=== PATIENT | female | born 1940 | race Caucasian/White ===

== ENCOUNTER → 2016-12-17 | Outpatient (CLI) | payer MEDICARE ==
--- NOTE | 2016-12-17 16:54 | PN ---
DATE OF SERVICE: 12/17/2016 A 76-year-old lady who has been followed in the sleep center for treatment of severe obstructive sleep apnea/hypopnea. Recently patient had a diagnostic sleep study and CPAP and then BiPAP titration. I discussed results of sleep studies with patient in detail because she has extremely severe sleep apnea with severe oxygen desaturation. Presently she is on treatment with BiPAP. I checked her BiPAP unit. Usage is every night with 28 out of 30 nights for more than 4 hours. Ramp is 20 minutes. While we checked her CPAP unit it came up that the patient did not connect tube correctly to CPAP unit. It was vice versa. A leak from the mask is in high range at 47 L/min, but again it could be related to connection to the tube. Apnea-hypopnea index reading from the machine is 7.7 for the last 30 days, which is not bad at all comparing with extremely severe sleep apnea. Apnea-hypopnea index 88.5. Patient feels that she sleeps better. [place] Sleepiness Scale is 10. Before treatment [place] Sleepiness Scale was 13. MEDICATIONS: Bumetanide, Atenolol, omeprazole, losartan, hydrochlorothiazide, levothyroxine, iron supplement, folic acid, multivitamins. PHYSICAL EXAMINATION: GENERAL: During physical exam, the patient in no distress. VITAL SIGNS: BP 160/83, HR 65, RR 16. Oxygen saturation at room air 92%, height 64.5, weight 244.8. BMI 41.2. Temperature 97.1. Oropharynx extremely low position of soft palate. HEENT: PERRLA, EOMI, Evaluation of the oropharynx showed tongue protrudes midline. NECK: Supple. No JVD, Thyroid is not palpable. LUNGS: Clear to percussion and to auscultation. Good air exchange. No wheezing or rhonchi. HEART: S1, S2 regular. No murmurs, gallops, or rubs. ABDOMEN: Obese. Soft and nontender. Bowel sounds are present. No organomegaly appreciated. CORRECTIONS OFFICER: Awake, alert, and oriented x3. Cranial nerves 2 to 7 intact. There is no fasciculation or atrophy noted. No focal deficits observed. IMPRESSION: 1. Extremely severe obstructive sleep apnea-hypopnea syndrome. Apnea-hypopnea index 88.5 with oxygen desaturation to 59.9%. Patient demonstrated close to 100% compliance with treatment benefiting from treatment. 2. Obesity. 3. Hypertension. 4. History of cardiac arrhythmia. 5. Iron deficiency anemia. 6. Acid reflux. 7. Hyperlipidemia. PLAN: 1. Patient will continue to use BiPAP equipment every night for the whole night. 2. Losing weight. 3. Sleep hygiene with regular time in bed for at least 8 hours. 4. No driving if feeling any sleepiness. 5. Follow-up visit in 6 months. Thank you very much for allowing me to participate in the management of your patient. Sincerely, Sharif Helton MD, PhD, FAASM Diplomat of [employer] Board of Sleep Medicine, Sleep Medicine Board by [employer] Board of Medical Specialities [employer] Board of Internal Medicine Vice President Education of [facility] [place]
== END | disposition home or self-care (01) ==
LOC: SLEEP 14:13
PROVIDERS: ATTEND Internal Medicine
DX: G47.33 Obstructive sleep apnea (adult) (pediatric) (principal); E66.9 Obesity, unspecified; Z68.41 Body mass index [BMI] 40.0-44.9, adult; I10 Essential (primary) hypertension; I49.9 Cardiac arrhythmia, unspecified; D50.9 Iron deficiency anemia, unspecified; K21.9 Gastro-esophageal reflux disease without esophagitis; E78.5 Hyperlipidemia, unspecified; Z79.899 Other long term (current) drug therapy

== ENCOUNTER 2017-12-28 09:39 | Day surgery (SDC) | payer MEDICARE ==
[2017-12-24 08:38] VITALS: BMI 42.2
[~2017-12-28 09:39] MED LIST: LIDOCAINE 1% 20 ML VIAL (10MG/ML) FOR IV START INTRADERMA PRN; MIDAZOLAM 2 MG/2 ML VIAL IV PRN
[2017-12-28 11:07] VITALS: RESP 16; TEMP 98
[2017-12-28] MEDS: LACTATED RINGERS 1,000 ML IV SCH ×2 (11:15→11:23)
[2017-12-28] MEDS ORDERED: PROPOFOL 10 MG/ML 20 ML VIAL IV ONE (11:24)
--- NOTE | 2017-12-28 12:30 | P.PCN ---
Date of Procedure: 12/28/17 Procedure(s) Performed: Procedure: 1. Esophagogastroduodenoscopy and biopsy. 2. Total colonoscopy. Preoperative diagnosis: Anemia and melena. Postoperative diagnosis: 1. Moderately sized hiatal hernia but no obvious esophagitis or complicated reflux disease. 2. Mild antral gastritis. 3. Colonoscopy revealed diverticulosis with no evidence of acute diverticulitis, strictures, polyps or cancer. Preparation: HalfLytely prep. Sedation: Was provided by anesthesia. Brief clinical history: The patient is a 77-year-old female who is scheduled for this evaluation for the above reasons. No hematochezia or hematemesis. No dysphagia, odynophagia or significant abdominal pains or change in bowel habits. She is taking iron and she thinks that made her stools darker. Procedure: With the patient on her left lateral decubitus position and after informed consent and adequate sedation, I passed the Olympus-GIF 160 video upper endoscope through the cricopharyngeus down the esophagus. GE junction was around 35 cm from the incisors and there was a small sliding hiatal hernia but no obvious esophagitis or complicated reflux disease. The endoscope was then passed into the stomach which was insufflated with air and inspected in detail including the retroflex view in the cardia. There was some mottling and erythema in the antrum but no ulcers or erosions. Pyloric channel, duodenal bulb, post bulbar area and descending duodenum appeared within normal limits. Because of her symptoms, I obtained biopsies from the duodenum, antrum and esophagus then the endoscope was withdrawn and I proceeded to do colonoscopy. Perianal area did not show any fissures or fistulas. There were no masses felt on digital rectal examination. The Olympus CFH 190 L video colonoscope was initially used and was inserted in the rectum in the usual fashion, however, I was not able to advance it safely in the sigmoid, so I exchanged it for the Olympus PCF Q180 videocolonoscope which was advanced without difficulty to the cecum. There were multiple diverticular orifices seen scattered in the sigmoid with occasional orifice around the hepatic flexure and on the right side with no evidence of acute diverticulitis or strictures. No polyps or tumors were seen. I retroflexed the endoscope in the rectum before the endoscope was withdrawn. The patient tolerated the procedure well. Plan: The patient was reassured. Will await pathology results. Consideration can be given for a small bowel study depending on her course and blood counts, especially, if she continues to manifest anemia and evidence of GI bleeding. She will follow-up with you as planned.
[2017-12-28 12:42] VITALS: BP 141/68; PULSE 53
== END 2017-12-28 13:06 | disposition home or self-care (01) ==
LOC: ORWHC2ENDO 09:39
DX: K44.9 Diaphragmatic hernia without obstruction or gangrene (principal); K57.90 Diverticulosis of intestine, part unspecified, without perforation or abscess without bleeding; D64.9 Anemia, unspecified; K29.50 Unspecified chronic gastritis without bleeding; I10 Essential (primary) hypertension; E78.5 Hyperlipidemia, unspecified; E07.9 Disorder of thyroid, unspecified; G47.33 Obstructive sleep apnea (adult) (pediatric); Z99.89 Dependence on other enabling machines and devices; Z79.890 Hormone replacement therapy; Z79.899 Other long term (current) drug therapy; Z88.1 Allergy status to other antibiotic agents
CPT/HCPCS: 88305; 45378; 43239; J2704

== ENCOUNTER → 2017-12-30 | Outpatient (CLI) | payer MEDICARE ==
--- NOTE | 2017-12-30 11:04 | SFUN ---
SLEEP CENTER FOLLOW UP NOTE DATE OF SERVICE: 12/30/2017. This 77-year-old lady has been followed in sleep center for treatment of severe obstructive sleep apnea-hypopnea syndrome. The patient continued to use her BiPAP equipment every night without significant problems, sleep well with the machine, no snoring. [place] Sleepiness Scale today is 6. I checked patient's BiPAP unit. Pressure is 19/15 cm of water. Usage is 100% of the time more than 4 hours. Average usage is 8.8 hours apnea-hypopnea index is only 2.3, which is perfect. Significant leak according to the machine 73 L/minute. When we checked the patient full-face mask, it is broken in small place which could be the reason for the leak. MEDICATIONS: Fluoxetine, fluticasone, iron supplement, Atenolol, losartan, hydrochlorothiazide, levothyroxine. PHYSICAL EXAM: During physical exam, patient in no distress. VITAL SIGNS: BP 139/75, HR 68, RR 16, height 5 feet 4 inches, weight 244, BMI 41.8, temp 97.2, oxygen saturation on room air 95%. Patient lost 7 pounds since previous visit. HEENT: PERRLA, EOMI. Oropharynx extremely low position of soft palate. NECK: Supple, no JVD. Thyroid is not palpable. LUNGS: Clear to percussion and to auscultation. Good air exchange. No wheezing or rhonchi. HEART: S1, S2 regular. No murmurs, gallops, or rubs. ABDOMEN: Obese. EXTREMITIES: No clubbing or cyanosis. C ARCHITECT: Awake, alert, and oriented X3. Cranial nerves 2 to 7 intact. There is no fasciculation or atrophy. noted. No focal deficits observed. IMPRESSION: 1. Severe obstructive sleep apnea-hypopnea syndrome, apnea-hypopnea index 88.5 with oxygen desaturation to 59.9, on full control with BiPAP. The patient demonstrated 100% compliance with treatment benefitting from treatment. 2. Mask is broken, significant leak from the mask. 3. Obesity. 4. Hypertension. 5. History of cardiac arrhythmia. 6. History of iron deficiency anemia. 7. Hyperlipidemia. 8. History of acid reflux. 9. Status post bilateral knee replacement. 10.Hypothyroidism. PLAN: 1. Prescription for all necessary BiPAP supplies including mask, tube, filters. 2. Continue to use BiPAP equipment every night for the whole night. 3. Continue losing weight. 4. Sleep hygiene with regular time in bed for at least 8 hours. 5. No driving if feeling any sleepiness. Thank you very much for allowing me to participate in management of your patient. Sincerely, Sharif Helton MD, PhD, FAASM Diplomat of [place] [employer] Medical Specialties [place] Board of Internal Medicine [facility] [place] MMODL / IJN: [id number] /
== END | disposition home or self-care (01) ==
LOC: SLEEP 10:00
PROVIDERS: ATTEND Internal Medicine
DX: G47.33 Obstructive sleep apnea (adult) (pediatric) (principal); E66.9 Obesity, unspecified; I10 Essential (primary) hypertension; E78.5 Hyperlipidemia, unspecified; E03.9 Hypothyroidism, unspecified; Z96.653 Presence of artificial knee joint, bilateral; Z87.19 Personal history of other diseases of the digestive system; Z86.79 Personal history of other diseases of the circulatory system; Z86.2 Personal history of diseases of the blood and blood-forming organs and certain disorders involving the immune mechanism; Z79.899 Other long term (current) drug therapy

== ENCOUNTER → 2018-06-21 | Outpatient (CLI) | payer MEDICARE ==
--- NOTE | 2018-06-21 08:27 | US ---
EXAMINATION TYPE: US duplex aorta DATE OF EXAM: 06/21/2018 COMPARISON: CT 2012 CLINICAL HISTORY: Z82.49 Family HX of ischemic heart disease. Father had AAA EXAM MEASUREMENTS: Abdominal Aorta: Proximal: 2.6 x 2.4 cm Mid: 2.0 x 1.8 cm Distal: 1.8 x 1.6 cm Bifurcation: 1.3 x 1.0 cm 1.3 x 0.9 cm No evidence of AAA Aorta is successfully visualized through the bifurcation without aneurysmal change. Incidental note i s made of heterogeneous hyperechoic liver likely reflecting diffuse fatty infiltration on images save d. IMPRESSION: No ultrasound evidence for AAA.
== END | disposition home or self-care (01) ==
LOC: RADUSWWP 07:26
PROVIDERS: ATTEND Family Medicine
DX: Z13.6 Encounter for screening for cardiovascular disorders (principal); Z82.49 Family history of ischemic heart disease and other diseases of the circulatory system
CPT/HCPCS: 93979

== ENCOUNTER → 2018-07-19 | Outpatient (CLI) | payer MEDICARE ==
--- NOTE | 2018-07-19 11:57 | MM ---
Reason for exam: screening (asymptomatic). Last mammogram was performed 1 year ago. History: Patient is postmenopausal. 2 excisional biopsies of the right breast, 1970. Took hormonal contraceptives for 3 years. Took estrogen for 15 years 6 months. Took progesterone for 5 years beginning at age 62. Physical Findings: A clinical breast exam by your physician is recommended on an annual basis and results should be correlated with mammographic findings. MG 3D Screening Mammo W/Cad Bilateral CC and MLO view(s) were taken. Prior study comparison: July 09, 2017, bilateral MG 3d screening mammo w/cad. January 21, 2016, bilateral MG 3d screening mammo w/cad. The breast tissue is heterogeneously dense. This may lower the sensitivity of mammography. Finding #1: There is stable architectural distortion in the anterior position of the right breast consistent with known excisional biopsy. Finding #2: There are typically benign dystrophic, round calcifications in both breasts. There is a chronic nodularity in the left breast. There is no discrete abnormality. ASSESSMENT: Benign, BI-RAD 2 RECOMMENDATION: Routine screening mammogram of both breasts in 1 year.
== END | disposition home or self-care (01) ==
LOC: RADMAMWWP 09:07
PROVIDERS: ATTEND Family Medicine
DX: Z12.31 Encounter for screening mammogram for malignant neoplasm of breast (principal)
CPT/HCPCS: 77063; 77067

== ENCOUNTER → 2018-09-27 | Outpatient (CLI) | payer MEDICARE ==
--- NOTE | 2018-09-27 23:06 | BD ---
EXAMINATION TYPE: Axial Bone Density DATE OF EXAM: 09/27/2018 Comparison: Prior DEXA bone scan January 21, 2016 CLINICAL HISTORY: Height: 246 Weight: 64 inches FRAX RISK QUESTIONS: Alcohol (3 or more units per day): no Family History (Parent hip fracture): no Glucocorticoids (More than 3mos): no (Ex: prednisone, prednisolone, methylprednisolone, dexamethasone, and hydrocortisone). History of Fracture in Adulthood: yes, foot Secondary Osteoporosis: 1. Type 1 Diabetes: no 2. Hyperthyroidism: no 3. Menopause before 45: yes 4. Malnutrition: no 5. Chronic liver disease: no Rheumatoid Arthritis: yes Current Tobacco Use: no RISK FACTORS HISTORY OF: Family History of Osteoporosis: yes Active: yes Diet low in dairy products/other sources of calcium: no Postmenopausal woman: yes Take estrogen and/or progesterone medications: topical for about one year How long: hormonal contraceptives about 3 years; estrogen about 15 years, progesterone about 5 years Lost more than 2 inches in height since high school: unsure, states may have been about 66 inches at one time Frequent falls: no Poor Health: no Hyperparathyroidism: no Adrenal Insufficiency: no MEDICATIONS: Prednisone or other steroids: no Thyroid Medications: yes Which medication: Levothyroxine How Long: over 10 years Osteoporosis Medications: no Additional Medications: for cholesterol, hypertension Additional History: bilateral knee replacements, multi-vitamin, heart arrythmia, iron supplement EXAM MEASUREMENTS: Bone mineral densitometry was performed using the [employer] System. Bone mineral density as measured about the Lumbar spine is: ----- L1-L4(G/cm2): 1.334 T Score Values are as follows: ----- L2: 1.4 ----- L3: 2.3 ----- L4: 0.4 ----- L1-L4: 1.3 Bone mineral density has: Increased 7.9% since study of: 01/21/2016 Bone mineral density about the R hip (g/cm2): 0.966 Bone mineral density about the L hip (g/cm2): 0.992 T Score values are as follows: -----R Neck: -0.5 -----L Neck: -0.3 -----R Total: 0.1 -----L Total: 0.3 Bone mineral density has: Increased 4.4% since study of: 01/21/2016 IMPRESSION: Normal (Values between +1 and -1 indicate normal bone mass). Consider repeating this study in 5 year s or sooner if there is some new clinical indication. NOTE: T-SCORE=SD OF THE YOUNG ADULT MEAN.
== END | disposition home or self-care (01) ==
LOC: RADBDWWP 13:03
PROVIDERS: ATTEND Family Medicine
DX: Z13.820 Encounter for screening for osteoporosis (principal)
CPT/HCPCS: 77080

== ENCOUNTER → 2019-01-31 | Outpatient (CLI) | payer MEDICARE ==
--- NOTE | 2019-01-31 13:22 | CT ---
EXAMINATION TYPE: CT iac wo con DATE OF EXAM: 01/31/2019 COMPARISON: None HISTORY: Right temporal headache CT DLP: 239mGycm Automated exposure control for dose reduction was used. FINDINGS: The external auditory canals are patent bilaterally. Mastoid air cells show no evidence of abnormal opacification bilaterally. The middle ear ossicles are symmetric and unremarkable. There is no evidence of suspicious surrounding soft tissue density to suggest cholesteatoma. The scutum is preserved bilaterally. The cochlea and the semicircular canals are symmetric and unremarkable. Ves tibular aqueduct and internal carotid canal appear unremarkable. Temporomandibular joints are mainta ined bilaterally. IMPRESSION: No significant abnormality seen to account for patient's symptoms.
== END | disposition home or self-care (01) ==
LOC: RADCTMAIN 12:28
PROVIDERS: ATTEND Otolaryngology
DX: R51 Headache (principal)
CPT/HCPCS: 70480

== ENCOUNTER → 2019-03-02 | Outpatient (CLI) | payer MEDICARE ==
--- NOTE | 2019-03-02 11:35 | SFUN ---
SLEEP CENTER FOLLOW UP NOTE DATE OF SERVICE: 03/02/2019 This is a 79-year-old lady who has been followed in sleep center for treatment of obstructive sleep apnea-hypopnea syndrome. The patient successfully continued to use her CPAP equipment every night for the whole night without significant problems related to mask fitting, pressure or humidification. She is getting her supplies in time and no problems with placements. [place] Sleepiness Scale today is 8. I checked BiPAP unit. Pressure 19/15 cm of water. Usage is 100% of the time more than 4 hours, average 8.3 hours. Leak is 6 L/minute, which is absolutely great numbers for the usage of full-face mask. Apnea-hypopnea index only 2.0 for the last month, which is absolutely perfect. MEDICATIONS: Fluoxetine, fluticasone, iron supplement, atenolol, losartan, hydrochlorothiazide, levothyroxine. PHYSICAL EXAMINATION: During physical exam, patient in no distress. VITAL SIGNS: BP 153/79, HR 61, RR 16, height 5 feet 3 inches, weight is 251.2, which is on 7 pounds more than during the previous visit about 1 year ago; body mass index 44.4, temperature 97.7, oxygen saturation at room air 93%. HEENT: PERRLA, EOMI. The oropharynx extremely low soft palate. Mallampati 4. NECK: Supple, no JVD. Thyroid is not palpable. LUNGS: Clear to percussion and to auscultation. Good air exchange. No wheezing or rhonchi. HEART: S1, S2 regular. No murmurs, gallops, or rubs. ABDOMEN: Obese. EXTREMITIES No clubbing or cyanosis. WILLOW MACHINE OPERATOR: Awake, alert, and oriented X3. Cranial nerves 2 to 7 intact. There is no fasciculation or atrophy. noted. No focal deficits observed. IMPRESSION: 1. Obstructive sleep apnea-hypopnea syndrome. Patient demonstrated 100% compliance with BiPAP therapy benefitting from treatment. No any significant leak from the machine now versus it was last year. 2. Hypertension. 3. Obesity. 4. History of cardiac arrhythmia. 5. History of iron deficiency anemia. 6. Acid reflux. 7. Hypothyroidism. 8. Status post bilateral knee replacement. PLAN: 1. Patient will continue to use BiPAP equipment every night for the whole night. 2. Losing weight. 3. Sleep hygiene with regular time in bed for at least 8 hours. 4. Prescription for all necessary BiPAP supplies including a full-face mask. The patient is using [employer] Simplus medium size mask, heated tube, filters. 5. Follow-up visit in 1 year or earlier if patient has any problems. Thank you very much for allowing me to participate in management of your patient. Sincerely, Sharif Helton MD, PhD, FAASM Diplomat of [place] Board of Medical Specialties [place] Board of Internal Medicine Senior [employer] Network Engineer of [facility] [place] MMODL / TAWANNAN: [id number] /
== END ==
LOC: SLEEP 10:03
PROVIDERS: ATTEND Internal Medicine
DX: G47.33 Obstructive sleep apnea (adult) (pediatric) (principal); I10 Essential (primary) hypertension; E66.9 Obesity, unspecified; D50.9 Iron deficiency anemia, unspecified; K21.9 Gastro-esophageal reflux disease without esophagitis; E03.9 Hypothyroidism, unspecified; Z96.653 Presence of artificial knee joint, bilateral; I49.9 Cardiac arrhythmia, unspecified; Z99.89 Dependence on other enabling machines and devices; Z68.41 Body mass index [BMI] 40.0-44.9, adult; Z79.899 Other long term (current) drug therapy

== ENCOUNTER → 2020-04-25 | Outpatient (CLI) | payer MEDICARE ==
--- NOTE | 2020-04-25 08:54 | US ---
EXAMINATION TYPE: US abdomen complete DATE OF EXAM: 04/25/2020 COMPARISON: CT 2012, US CLINICAL HISTORY: R10.811 right upper quadrant tenderness. EXAM MEASUREMENTS: Liver Length: 18.1 cm Gallbladder Wall: 0.1 cm CBD: 0.5 cm Spleen: 7.9 cm Right Kidney: 12.3 x 4.9 x 4.5 cm Left Kidney: 11.3 x4.6 x 4.5 cm Pancreas: Partially Obscured by bowel ga, No masses seens Liver: Heterogeneous texture Gallbladder: 0.4 mm polyp Evidence for sonographic Scott's sign: No CBD: wnl Spleen: wnl Right Kidney: wnl Left Kidney: 2 cysts noted. Medial, upper/mid pole = 1.9 x 1.9 x 1.6 cm. Lateral, upper/mid pole = 0 .9 x 0.6 x 0.6 cm Upper IVC: wnl Abd Aorta: wnl IMPRESSION: 1. Heterogeneous pattern of liver is nonspecific could be seen with hepatic steatosis or hepatitis. 2. 4 mm gallbladder polyp. 3. Left renal cysts
== END | disposition home or self-care (01) ==
LOC: RADUSWWP 08:09
PROVIDERS: ATTEND Family Medicine
DX: N28.1 Cyst of kidney, acquired (principal); K82.4 Cholesterolosis of gallbladder
CPT/HCPCS: 76700

== ENCOUNTER → 2021-08-27 | Outpatient (CLI) | payer MEDICARE ==
--- NOTE | 2021-08-27 23:14 | SFUN ---
SLEEP CENTER FOLLOW UP NOTE DATE OF SERVICE: 08/27/2021 This 81-year-old lady has been followed in Sleep Center for treatment of obstructive sleep apnea-hypopnea syndrome. Her last visit was about 2-1/2 years ago. The patient continues to use her BiPAP equipment every night. [employer] Sleepiness Scale today is 6, which is in normal range. I checked her BiPAP unit and supplies. BiPAP pressure is 19/15 cm of water. Leak is 1 L/minute, which is absolutely normal. Apnea-hypopnea index is only 1.5, which is perfect. While checking her machine on the line of compliance, the machine always showed 7/7 nights usage for more than 4 hours, even if I put 3 months, 6 months -- so that line is not working accurately in the machine. MEDICATIONS: 1. Rosuvastatin 10 mg every third day. 2. Losartan/hydrochlorothiazide 100/25 mg once a day. 3. Levothyroxine 112 mcg once a day. 4. Atenolol 100 mg once a day. 5. Fenofibrate 160 mg once a day. 6. Folic acid 1 mg once a day. 7. Celebrex 200 mg once a day. 8. Fluticasone 50 mcg as needed. 9. Melatonin 5 mg as needed. 10.Tylenol as needed. PHYSICAL EXAMINATION: GENERAL: Pleasant patient in no distress. VITAL SIGNS: BP 123/62, HR 74, RR 15, height 5 feet 3-1/4 inches, weight 250.6, body mass index 44, temperature 97.4, oxygen saturation at room air 95%. HEENT: PERRLA, EOMI, evaluation of oropharynx showed tongue protrudes midline. Low position of soft palate; Mallampati IV. NECK: Supple, no JVD. Thyroid is not palpable. LUNGS: Clear to percussion and to auscultation. Good air exchange. No wheezing or rhonchi. HEART: S1, S2 regular. No murmurs, gallops, or rubs. ABDOMEN: Obese. EXTREMITIES: No clubbing or cyanosis. RECOIL SPRING WINDER: Awake, alert, and oriented X3. Cranial nerves 2 to 7 intact. There is no fasciculation or atrophy. noted. No focal deficits observed. IMPRESSION: 1. Obstructive sleep apnea-hypopnea syndrome. Patient continues to use her BiPAP equipment every night. Machine has a problem reading compliancy line on the screen. Apnea-hypopnea index totally normal. 2. Hypertension. 3. Obesity. 4. History of cardiac arrhythmia. 5. Acid reflux. 6. History of iron deficiency anemia. 7. Hypothyroidism. 8. Status post bilateral knee replacement. PLAN: 1. Prescription to check and if necessary to replace BiPAP unit. 2. Patient will continue to use PAP equipment every night for the whole night. 3. Sleep hygiene with regular time in bed for at least 7-1/2 to 8 hours. 4. Precautions related to driving. No driving if feeling sleepiness. 5. I will maintain all necessary prescription for PAP supplies including mask, tube, filters. 6. Watching weight. 7. Follow-up visit in 6 months or earlier if patient has any problems. Thank you very much for allowing me to participate in the management of your patient. Sincerely, Sharif Helton MD, PhD, FAASM Diplomat of [place] [employer] Specialties Sleep Medicine Board of [place] Board of Internal Medicine Wood Finisher Apprentice of [facility] [place] MMODL / TAWANNAN: [id number] /
== END | disposition home or self-care (01) ==
LOC: SLEEP 13:11
PROVIDERS: ATTEND Internal Medicine
DX: G47.33 Obstructive sleep apnea (adult) (pediatric) (principal); I10 Essential (primary) hypertension; E55.9 Vitamin D deficiency, unspecified; K21.9 Gastro-esophageal reflux disease without esophagitis; E03.9 Hypothyroidism, unspecified; Z86.79 Personal history of other diseases of the circulatory system; Z96.653 Presence of artificial knee joint, bilateral

== ENCOUNTER → 2022-02-19 | Day surgery (SDC) | payer MEDICARE ==
--- NOTE | 2022-02-25 14:06 | MM ---
Reason for Exam: Additional evaluation requested from abnormal screening. Last screening mammogram was performed less than 1 month ago. Patient History: Menarche at age 14. First Full-Term at age 28. Left ovary removed at age 47. Right ovary removed at age 47. Hysterectomy at age 47. Postmenopausal. Estrogen for 15 years, 6 months, until age 65. Progesterone for 5 years from age 62 until age 67. Hormonal Contraceptives for 3 years until age 26. Unspecified Hormone, from age 78 until age 81. 1969, Excisional Biopsy on the Right side. 1969, Excisional Biopsy on the Right side. Risk Values: Rosanne 5 year model risk: 2.7%. NCI Lifetime model risk: 3.9%. Prior Study Comparison: 07/09/2017 Bilateral Screening Mammogram, [facility]. 07/19/2018 Bilateral Screening Mammogram, [facility]. 01/30/2022 Bilateral MG 3D diag mammo w/cad YONAS, [facility]. Tissue Density: Right: The breast tissue is heterogeneously dense. This may lower the sensitivity of mammography. Pathology Description: Location: 11 o'clock, upper outer quadrant. Needle Type: Mammotome Cores: 6 Skin Nicks: 1 Gauge: 13 The procedure of ultrasound guided core biopsy was explained to the patient. Benefits, alternatives, and risks were discussed. An informed consent was then obtained. Timeout was performed. The patient was placed in supine positioning for imaging and for the procedure. The overlying skin was prepped and draped in usual sterile fashion. Lidocaine was used as anesthetic into the skin and subcutaneous tissue up to area of concern in the right breast. A small skin manpreet was made with surgical scalpel. Under ultrasound guidance, a 12-gauge vacuum assisted biopsy gun device was used to obtain 6 core samples. Following this, a biopsy clip was left in lesion. Hydromark was placed. The patient tolerated the procedure well without any immediate complication. The patient was kept in the radiology department for short stay after the procedure and then discharged home in stable condition. Impression: 1. Successful ultrasound-guided core biopsy right breast. Pathology Results: Result: Malignant, Invasive ductal carcinoma. 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 Overall Assessment: Malignant Assessment: MG diagnostic mammo RT wo CAD - Right: Known biopsy proven malignancy, BI-RAD 6. Management: Surgical Consultation of the right breast. Electronically signed and approved by: Osiel Webb D.O. Radiologis
== END ==
LOC: RADUSWWP 11:40
PROVIDERS: ATTEND Surgery
DX: C50.411 Malignant neoplasm of upper-outer quadrant of right female breast (principal); Z17.0 Estrogen receptor positive status [ER+]; Z90.722 Acquired absence of ovaries, bilateral
CPT/HCPCS: 88305; 88342; 88341; 77065; 19083; A4648

== ENCOUNTER → 2022-02-19 | Outpatient (CLI) | payer MEDICARE ==
[2022-02-19 12:23] VITALS: BP 144/82; PULSE 66; RESP 18; TEMP 98
--- NOTE | 2022-02-19 12:47 | P.GSHP ---
History of Present Illness H&P Date: 02/19/22 Chief Complaint: abnormal right breast ultrasound Sandra is an 82 year old white female seen in consultation for DR. Reed regarding a mammographic abnormality in the right breast. The patient was able to feel a lump in her right breast about three weeks ago. [place] [id number] which led to an ultrasound of the right breast. No specific lesions of concern were identified in the left breast. The ultrasound revealed a mass in the right breast for which ultrasound-guided core biopsy was recommended. About 50 years ago she had a right breast biopsy which was benign a d a benign lipoma removed from the right axilla. She has no nipple discharge or skin changes. Caffeine: 1 cup/day nicotine: none chocolate: occasional Family History: mother: skin cancer Hormonal History: menarche: 14 , breast fed: no, age at first : 28 menopause: hysterectomy at 43, no cancer, took both ovaries BCP: 7 years in her 20's and 30's hormones: was on estrogen after her hysterectomy for 20 years has recently been on estrogen for vaginal dryness Surgical History: Total abdominal hysterectomy bilateral salpingo-oophorectomy/endometriosis right breast biopsy lipoma foot surgery tubaligation appendectomy bilateral knee replacement Medical History: vaginal dryness A-fib Social History: nicotine: none alcohol: none drug: CBD in the past for arthritis - Constitutional Constitutional: Denies chills, Denies fever - EENT Eyes: bilateral dry eye, denies blurred vision, denies pain Ears: bilateral: decreased hearing, deny: tinnitus Ears, nose, mouth and throat: Denies headache, Denies sore throat - Breasts Breasts: bilateral: as per HPI - Cardiovascular Comment: A-fib Cardiovascular: Reports as per HPI - Respiratory Respiratory: Denies cough, Denies 7 - Gastrointestinal Gastrointestinal: Denies abdominal pain, Denies diarrhea, Denies nausea, Denies vomiting - Genitourinary (Female) Genitourinary: Denies dysuria, Denies hematuria - Menstruation Menstruation: Reports post hysterectomy - Musculoskeletal Comment: arthritis - Integumentary Integumentary: Denies pruritus, Denies rash - Neurological Neurological: Denies numbness, Denies weakness - Psychiatric Psychiatric: Denies anxiety, Denies depression - Endocrine Endocrine: Denies fatigue, Denies weight change - Hematologic/Lymphatic Comment: none - Allergic/Immunologic Allergic/Immunologic: Reports as per HPI Past Medical History Past Medical History: Blood Disorder, Hyperlipidemia, Hypertension, Thyroid Disorder Additional Past Medical History / Comment(s): ANEMIA. HX CD-JKA ANTIBIODIES IN BLOOD History of Any Multi-Drug Resistant Organisms: None Reported Past Surgical History: Breast Surgery, Hysterectomy, Joint Replacement Additional Past Surgical History / Comment(s): RT BREAST LUMPECTOMY-BENIGN. LUMPECTOMY UNDER RT ARM-BENIGN. LT FOOT SX. COLONOSCOPY. BILAT TKA Past Anesthesia/Blood Transfusion Reactions: No Reported Reaction Past Psychological History: Depression Smoking Status: Former smoker Past Alcohol Use History: Occasional Additional Past Alcohol Use History / Comment(s): QUIT SMOKING 30 YEARS AGO Past Drug Use History: None Reported - Past Family History Mother Family Medical History: No Reported History Medications and Allergies Home Medications Medication Instructions Recorded Confirmed Type Bumetanide [Bumex] 1 mg PO DAILY PRN 12/24/17 02/19/22 History Fenofibrate 160 mg PO DAILY 12/24/17 02/19/22 History Ferrous Fumarate/Ascorbic Acid 1 each PO DAILY 12/24/17 02/19/22 History [Karan-Sequels 65-25 mg Caplet] Folic Acid 1 mg PO DAILY 12/24/17 02/19/22 History Levothyroxine Sodium [Synthroid] 112 mcg PO DAILY 12/24/17 02/19/22 History atenoloL 100 mg PO DAILY 12/24/17 02/19/22 History Losartan/Hydrochlorothiazide 1 each PO DAILY 02/06/22 02/19/22 History [Losartan-Hctz 100-25 mg Tab] Melatonin 1 mg PO HS 02/06/22 02/19/22 History Rosuvastatin [Crestor] 20 mg PO DAILY 02/06/22 02/19/22 History Allergies Allergy/AdvReac Type Severity Reaction Status Date / Time erythromycin base Allergy Rash/Hives Verified 02/19/22 12:23 [From E-Mycin] adhesive tape AdvReac Rash/Hives Verified 02/19/22 12:23 simvastatin [From Zocor] AdvReac MUSCLE Verified 02/19/22 12:23 [facility] - Exam Vital Signs Temp Pulse Resp BP Pulse Ox 98.0 F 66 18 144/82 95 02/19/22 12:19 02/19/22 12:19 02/19/22 12:19 02/19/22 12:19 02/19/22 12:19 BMI : 42.9 - General no distress - Eyes normal ocular movement - Neck trachea midline - Respiratory normal respiratory effort, clear to auscultation - Cardiovascular Rhythm: regular Heart Sounds: normal: S1, S2 - Abdomen Abdomen: soft, non tender, no guarding, no rigid, no rebound - Integumentary normal turgor - Neurologic no disoriented, no combative - Musculoskeletal uses a cane to walk - Psychiatric oriented to time, oriented to person, oriented to place, speech is normal, memory intact Breast Exam: BRA: 34B inspection: well healed scar from prior right biopsy, bilateral grade 3 ptosis Palpation: Right breast: approximately 2.5 cm fullness at 12:00 no other dominant masses or nodules of concern Right axilla: No adenopathy of concern left breast: No dominant masses or nodules of concern Left axilla: No adenopathy of concern Assessment and Plan Assessment: Impression: vaginal dryness A-fib Radiographic abnormality right breast consistent with palpable abnormality right breast Fibrocystic breast changes Plan: Stop estrogen and toe biopsy of right breast lesion Ultrasound core biopsy right breast lesion Follow up after ultrasound core biopsy right breast lesion Risks and benefits of the procedure discussed with the patient. She understands and wishes to proceed. Risks include but are not limited to bleeding, infection, reaction to the anesthetic. If the biopsy is not concordant then further recommendation will follow for diagnosis. CC: Dr. Reed
== END ==
LOC: WWCWWP 11:39
PROVIDERS: ATTEND Surgery
DX: R92.8 Other abnormal and inconclusive findings on diagnostic imaging of breast (principal); N60.19 Diffuse cystic mastopathy of unspecified breast; E78.5 Hyperlipidemia, unspecified; I10 Essential (primary) hypertension; I48.91 Unspecified atrial fibrillation; Z87.891 Personal history of nicotine dependence; Z88.1 Allergy status to other antibiotic agents; M19.90 Unspecified osteoarthritis, unspecified site; F32.A Depression, unspecified; Z79.899 Other long term (current) drug therapy; Z91.048 Other nonmedicinal substance allergy status; Z88.8 Allergy status to other drugs, medicaments and biological substances

== ENCOUNTER → 2022-02-26 | Outpatient (CLI) | payer MEDICARE ==
[2022-02-26 14:04] VITALS: BP 164/82; PULSE 70; RESP 17; TEMP 98.7
--- NOTE | 2022-02-26 14:21 | P.PN ---
Subjective Progress Note Date: 02/26/22 Principal diagnosis: invasive ductal cancer right breast Sandra is an 82 year old white female seen in consultation for DR. Ding regarding a mammographic abnormality in the right breast. The patient was able to feel a lump in her right breast about three weeks ago. [place] [address] which led to an ultrasound of the right breast. No specific lesions of concern were identified in the left breast. The ultrasound revealed a mass in the right breast for which ultrasound-guided core biopsy was recommended. About 50 years ago she had a right breast biopsy which was benign a d a benign lipoma removed from the right axilla. She has no nipple discharge or skin changes. Core biopsy was done on 02-20-22; pathology revealed a G2 invasive ductal cancer ER+Pr+Her2?; The patient tolerated the procedure without difficulty. Caffeine: 1 cup/day nicotine: none chocolate: occasional Family History: mother: skin cancer Hormonal History: menarche: 14 , breast fed: no, age at first : 28 menopause: hysterectomy at 43, no cancer, took both ovaries BCP: 7 years in her 20's and 30's hormones: was on estrogen after her hysterectomy for 20 years has recently been on estrogen for vaginal dryness Surgical History: Total abdominal hysterectomy bilateral salpingo-oophorectomy/endometriosis right breast biopsy lipoma foot surgery tubaligation appendectomy bilateral knee replacement Medical History: vaginal dryness A-fib Social History: nicotine: none alcohol: none drug: CBD in the past for arthritis - Constitutional Constitutional: Denies chills, Denies fever - EENT Eyes: bilateral dry eye, denies blurred vision, denies pain Ears: bilateral: decreased hearing, deny: tinnitus Ears, nose, mouth and throat: Denies headache, Denies sore throat - Breasts Breasts: bilateral: as per HPI - Cardiovascular Comment: A-fib Cardiovascular: Reports as per HPI - Respiratory Respiratory: Denies cough - Gastrointestinal Gastrointestinal: Denies abdominal pain, Denies diarrhea, Denies nausea, Denies vomiting - Genitourinary (Female) Genitourinary: Denies dysuria, Denies hematuria - Menstruation Menstruation: Reports post hysterectomy - Musculoskeletal Comment: arthritis - Integumentary Integumentary: Denies pruritus, Denies rash - Neurological Neurological: Denies numbness, Denies weakness - Psychiatric Psychiatric: Denies anxiety, Denies depression - Endocrine Endocrine: Denies fatigue, Denies weight change - Hematologic/Lymphatic Comment: none - Allergic/Immunologic Allergic/Immunologic: Reports as per HPI Objective - Vital Signs Vital signs: Vital Signs Temp 98.7 F 02/26/22 14:01 Pulse 70 02/26/22 14:01 Resp 17 02/26/22 14:01 BP 164/82 02/26/22 14:01 Pulse Ox 95 02/26/22 14:01 FiO2 Intake & Output 02/25/22 02/26/22 02/26/22 18:59 06:59 18:59 Weight 113.398 kg - Exam BMI: 42.9 - Constitutional General appearance: Present: cooperative - EENT Eyes: Present: EOMI ENT: Present: hearing grossly normal - Neck Neck: Present: normal ROM - Respiratory Respiratory: bilateral: CTA - Cardiovascular Rhythm: regular Heart sounds: normal: S1, S2 - Integumentary Integumentary Comment(s): Mild ecchymosis at biopsy site - Musculoskeletal Musculoskeletal Comment(s): uses a cane - Psychiatric Psychiatric: Present: A&O x's 3, appropriate affect, intact judgment & insight Assessment and Plan Assessment: Impression: 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 Ding
== END | disposition home or self-care (01) ==
LOC: WWCWWP 13:49
PROVIDERS: ATTEND Surgery
DX: Z53.9 Procedure and treatment not carried out, unspecified reason (principal)

== ENCOUNTER → 2022-04-02 | Outpatient (CLI) | payer MEDICARE ==
[2022-04-02 11:58] VITALS: BP 167/97; PULSE 72; RESP 18; TEMP 98.1
--- NOTE | 2022-04-02 12:27 | P.PN ---
Subjective Progress Note Date: 04/02/22 Principal diagnosis: right breast invasive ductal cancer invasive ductal cancer right breast Sandra is an 82 year old white female seen in consultation for DR. Reed regarding a mammographic abnormality in the right breast. The patient was able to feel a lump in her right breast about three weels prior. She had a bilateral mammogram on which led to an ultrasound of the right breast. No specific lesions of concern were identified in the left breast. The ultrasound revealed a mass in the right breast for which ultrasound-guided core biopsy was recommended. This was a spiculated mass in the 11 OClock position, 2.6 CM in size. About 50 years ago she had a right breast biopsy which was benign and a benign lipoma removed from the right axilla. She has no nipple discharge or skin changes. Core biopsy was done on 02-20-22; pathology revealed a G2 invasive ductal cancer ER+Pr+Her2-; The patient tolerated the procedure without difficulty. Note from radiation oncology DR. Barth 03-12-22 reviewed (stage IIA T2N1M0, ER+Pr+Her2- also with high grade DCIS) Oncotype: 19 chemotherapy benefit <1% Dr. Reddy was seen earlier this week Caffeine: 1 cup/day nicotine: none chocolate: occasional Family History: mother: skin cancer paternal cousin breast cancer in her late 50's Hormonal History: menarche: 14 , breast fed: no, age at first : 28 menopause: hysterectomy at 43, no cancer, took both ovaries BCP: 7 years in her 20's and 30's hormones: was on estrogen after her hysterectomy for 20 years has recently been on estrogen for vaginal dryness Surgical History: Total abdominal hysterectomy bilateral salpingo-oophorectomy/endometriosis right breast biopsy lipoma foot surgery tubaligation appendectomy bilateral knee replacement Allergies: Zoloft adhesize tape erythmycin Medical History: vaginal dryness A-fib anemia high cholesterol hypothyroid Social History: nicotine: none alcohol: none drug: CBD in the past for arthritis - Constitutional Constitutional: Denies chills, Denies fever - EENT Eyes: bilateral dry eye, denies blurred vision, denies pain Ears: bilateral: decreased hearing, deny: tinnitus Ears, nose, mouth and throat: Denies headache, Denies sore throat - Breasts Breasts: bilateral: as per HPI - Cardiovascular Comment: A-fib Cardiovascular: Reports as per HPI - Respiratory Respiratory: Denies cough - Gastrointestinal Gastrointestinal: Denies abdominal pain, Denies diarrhea, Denies nausea, Denies vomiting - Genitourinary (Female) Genitourinary: Denies dysuria, Denies hematuria - Menstruation Menstruation: Reports post hysterectomy - Musculoskeletal Comment: arthritis - Integumentary Integumentary: Denies pruritus, Denies rash - Neurological Neurological: Denies numbness, Denies weakness - Psychiatric Psychiatric: Denies anxiety, Denies depression - Endocrine Endocrine: Denies fatigue, Denies weight change - Hematologic/Lymphatic Comment: none - Allergic/Immunologic Allergic/Immunologic: Reports as per HPI Objective - Exam BMI: 42.6 - Constitutional General appearance: Present: cooperative - EENT Eyes: Present: EOMI ENT: Present: hearing grossly normal - Neck Neck: Present: normal ROM - Respiratory Respiratory: bilateral: CTA - Cardiovascular Heart sounds: normal: S1, S2 - Gastrointestinal General gastrointestinal: Present: soft - Integumentary Integumentary Comment(s): swollen bilateral ankles - Psychiatric Psychiatric: Present: A&O x's 3, appropriate affect, intact judgment & insight - Additional findings Additional findings: Breast Exam: BRA: 36B Inspection: Bilateral grade 3 ptosis Palpation: Right breast: Multi-positional exam mass at approximately 11:30 to 12:00 approximately 2 cm in size otherwise fibrocystic changes Right axilla: No discrete dominant masses or notches of concern Left breast: Multi-positional exam fibrocystic changes no dominant masses or notches of concern Left axilla: No adenopathy of concern Assessment and Plan Assessment: Impression: vaginal dryness A-fib ? anemia high cholesterol hypothyroid Plan: 1. Clearance Dr. Reed 2. right mastectomy and sentinal node injection, sentinal node biopsy, possilbe axillary node dissection CC: Dr. Reed
== END | disposition home or self-care (01) ==
LOC: WWCWWP 11:42
PROVIDERS: ATTEND Surgery
DX: Z53.9 Procedure and treatment not carried out, unspecified reason (principal)

== ENCOUNTER 2022-05-05 07:17 | Day surgery (SDC) | payer MEDICARE ==
--- NOTE | 2022-04-30 16:56 | P.PN ---
Subjective Progress Note Date: 04/30/22 Principal diagnosis: Invasive ductal carcinoma right breast right breast invasive ductal cancer Sandra is an 82 year old white female seen in consultation for DR. Ding regarding a mammographic abnormality in the right breast. The patient was able to feel a lump in her right breast about three weeks prior. She had a bilateral mammogram on which led to an ultrasound of the right breast. No specific lesions of concern were identified in the left breast. The ultrasound revealed a mass in the right breast for which ultrasound-guided core biopsy was recommended. This was a spiculated mass in the 11 OClock position, 2.6 CM in size. About 50 years ago she had a right breast biopsy which was benign and a benign lipoma removed from the right axilla. She has no nipple discharge or skin changes. Core biopsy was done on 02-20-22; pathology revealed a G2 invasive ductal cancer ER+Pr+Her2-; The patient tolerated the procedure without difficulty. [id number]+Pr+Her2-G2 Oncotype: 19 chemotherapy benefit <1% Dr. Reddy was seen pre-operatively Caffeine: 1 cup/day nicotine: none chocolate: occasional Family History: mother: skin cancer paternal cousin breast cancer in her late 50's Hormonal History: menarche: 14 , breast fed: no, age at first : 28 menopause: hysterectomy at 43, no cancer, took both ovaries BCP: 7 years in her 20's and 30's hormones: was on estrogen after her hysterectomy for 20 years has recently been on estrogen for vaginal dryness Surgical History: Total abdominal hysterectomy bilateral salpingo-oophorectomy/endometriosis right breast biopsy lipoma foot surgery tubaligation appendectomy bilateral knee replacement Allergies: Zoloft adhesize tape erythmycin Medical History: vaginal dryness A-fib anemia high cholesterol hypothyroid Social History: nicotine: none alcohol: none drug: CBD in the past for arthritis - Constitutional Constitutional: Denies chills, Denies fever - EENT Eyes: bilateral dry eye, denies blurred vision, denies pain Ears: bilateral: decreased hearing, deny: tinnitus Ears, nose, mouth and throat: Denies headache, Denies sore throat - Breasts Breasts: bilateral: as per HPI - Cardiovascular Comment: A-fib Cardiovascular: Reports as per HPI - Respiratory Respiratory: Denies cough - Gastrointestinal Gastrointestinal: Denies abdominal pain, Denies diarrhea, Denies nausea, Denies vomiting - Genitourinary (Female) Genitourinary: Denies dysuria, Denies hematuria - Menstruation Menstruation: Reports post hysterectomy - Musculoskeletal Comment: arthritis - Integumentary Integumentary: Denies pruritus, Denies rash - Neurological Neurological: Denies numbness, Denies weakness - Psychiatric Psychiatric: Denies anxiety, Denies depression - Endocrine Endocrine: Denies fatigue, Denies weight change - Hematologic/Lymphatic Comment: none - Allergic/Immunologic Allergic/Immunologic: Reports as per HPI Objective - Exam BMI 42.6 - Constitutional General appearance: Present: cooperative - EENT Eyes: Present: EOMI ENT: Present: hearing grossly normal - Neck Neck: Present: normal ROM - Respiratory Respiratory: bilateral: CTA - Cardiovascular Heart sounds: normal: S1, S2 - Gastrointestinal General gastrointestinal: Present: soft - Integumentary Integumentary Comment(s): Swollen bilateral ankles - Musculoskeletal Musculoskeletal: Present: gait normal - Psychiatric Psychiatric: Present: A&O x's 3, appropriate affect, intact judgment & insight - Additional findings Additional findings: Breast exam: BRA: 36B Inspection: Bilateral grade 3 ptosis Palpation: Right breast: Multi-positional exam masses approximately 11:30 to 12:00 approximately 2 cm in size, otherwise fibrocystic changes Right axilla: No discrete dominant masses or nodules of concern Left breast: Multi-positional exam fibrocystic changes no dominant masses or nodules of concern Left axilla: No adenopathy of concern Assessment and Plan Assessment: Impression: Vaginal dryness Atrial fib question Anemia High cholesterol Hypothyroid Plan: Tito Ding Right mastectomy and sentinel node injection, sentinel node biopsy, possible axillary node dissection
[2022-05-01 11:45] VITALS: BMI 42.2
[~2022-05-05 07:17] MED LIST changes: +HEPARIN SODIUM,PORCINE/PF 5,000 UNIT/0.5 ML SYRINGE SQ PRN; +HYDROmorphone 0.5 MG/0.5 ML SYRINGE IVP PRN; +LIDOCAINE 1% (10MG/ML) FOR IV START INTRADERMA PRN; -LIDOCAINE 1% 20 ML VIAL (10MG/ML) FOR IV START INTRADERMA PRN; -MIDAZOLAM 2 MG/2 ML VIAL IV PRN; +ONDANSETRON 4 MG/2 ML VIAL IVP ONE; +Pre Op ABX Message 1 EACH MISC MISCELLANE ONE
[2022-05-05] MEDS ORDERED: DEXAMETHASONE SOD PHOSPHATE 4 MG/ML 1 ML VIAL IV ONE (08:31)
[2022-05-05] MEDS: LACTATED RINGERS 1,000 ML IV SCH (08:31)
--- NOTE | 2022-05-05 09:19 | NM ---
EXAMINATION TYPE: NM sentinel node injection DATE OF EXAM: 05/05/2022 COMPARISON: NONE HISTORY: Right breast neoplasm. TECHNIQUE AND FINDINGS: The procedure of sentinel lymph node injection was explained to the patient. The benefits, alternatives, and risks were discussed. An informed consent was then obtained. Overlying skin is cleaned with sterile alcohol. Following this, 518 uCi Tc99m Tilmanocept was inject ed in the upper outer aspect of the right nipple intradermally. The patient tolerated the procedure well without any immediate complication. The patient was kept in the radiology department for short stay after the procedure and then taken to surgery for surgical p rocedure what is presumed intraoperative gamma probe will be used for sentinel lymph node detection. IMPRESSION: Right breast radiotracer injection for sentinel node localization as above.
--- NOTE | 2022-05-05 09:49 | P.NAPBC ---
NAPBC Queries - NAPBC Queries Was patient's case review presented at [facility] tumor board? If no, comment.: Yes Was patient's pathology reviewed at [facility]? If no, comment.: Yes Was breast conservation surgery offered? If no, comment.: Yes Was sentinel node biopsy offered? If no, comment.: Yes Was diagnosis confirmed by percutaneous core biopsy? If no, comment.: Yes Is patient mastectomy patient?: Yes Was a preop referral to reconstructive surgeon offered?: No Clinical Stage: [id number]+OR+Her2-G2
[2022-05-05] MEDS ORDERED: GLYCOPYRROLATE 0.2 MG/ML 2 ML VIAL ONE (10:16)
[2022-05-05] MEDS ORDERED: HYDROmorphone (PF) 1 MG/ML ONE (10:16)
[2022-05-05] MEDS ORDERED: SUCCINYLCHOLINE CHLORIDE 200 MG/10 ML VIAL IV ONE (10:16)
[2022-05-05] MEDS ORDERED: LIDOCAINE 2% INJ 20 MG/ML (2 ML VIAL) ONE (10:16)
[2022-05-05] MEDS ORDERED: ePHEDrine 50 MG/ML 1 ML VIAL ONE (10:16)
[2022-05-05] MEDS ORDERED: fentaNYL (PF) 50 MCG/ML 2 ML AMP ONE (10:16)
[2022-05-05] MEDS ORDERED: PROPOFOL 10 MG/ML 20 ML VIAL IV ONE (10:16)
[2022-05-05] MEDS ORDERED: SODIUM CHLORIDE 0.9% 100 ML with ceFAZolin 2,000 MG IV ONE ×2 (10:35)
[2022-05-05] MEDS ORDERED: LIDOCAINE 1% INJ 10MG/ML (30 ML VIAL-PF) SQ ONE (11:37)
[2022-05-05] MEDS ORDERED: ONDANSETRON 4 MG/2 ML VIAL IVP PRN (12:58)
[2022-05-05] MEDS ORDERED: HYDROmorphone 1 MG/ML 1 ML SYRINGE IVP PRN (12:58)
[2022-05-05] MEDS ORDERED: HYDROcodone/APAP 5-325MG 1 EACH TAB PO PRN (12:58)
[2022-05-05] MEDS ORDERED: NALOXONE 0.4 MG/ML 1 ML VIAL IV PRN (12:58)
--- NOTE | 2022-05-05 12:58 | P.OP ---
Date of Procedure: 05/05/22 Preoperative Diagnosis: Right breast invasive ductal carcinoma Postoperative Diagnosis: Same Procedure(s) Performed: Right mastectomy, right sentinel node biopsy, the advancement flap mastectomy incision laterally Anesthesia: DEL Surgeon: Jaclyn Temple Estimated Blood Loss (ml): 30 IV fluids (ml): 600 Pathology: other (Breast tissue, sentinel lymph nodes right axilla) Condition: stable Disposition: floor Indications for Procedure: Right breast invasive ductal carcinoma Operative Findings: Fibrofatty breast tissue Description of Procedure: The patient is an 82-year-old white female diagnosed with a right breast invasive ductal carcinoma. She wished for a mastectomy. There was a questionable area of another radiographic abnormality in the right breast and she opted for mastectomy rather than an attempt at an additional biopsy. The patient had conversation regarding sentinel node biopsy despite the fact that she was 82 and she wished to have sentinel node biopsy performed. The patient had radiology inject radioactive tracer into the peel-away periareolar area. The patient was then brought to the operative suite. The breast and axilla were prepped and draped in a sterile fashion. Interrogation of the axilla revealed the radiotracer had traveled to the axilla. Emergency pen was utilized to luke the superior and inferior skin flap incisions. The superior skin sedation was made. This was carried down through the skin and subcutaneous tissue. The superior flap was developed using the electrocautery device. In a similar fashion the inferior flap was developed and carried down to the pectoralis muscle. The breast was brought from medial to lateral being careful to maintain hemostasis using the electrocautery device as well as the Harmonic scalpel. Dissection was performed to the area of the axilla. In the axilla a neoprobe was used to identify a sentinel node. [place] nodes were identified. #1 10 second count of 2894. #2 10 second count 2448 #3 10 second count 4001 #4 10 second count 6003 Background 10 second count 21 The axilla and the mastectomy site were well irrigated. After assured that hemostasis was attained 2 ZACHERY drains were placed. Additionally Surgicel in powder form was placed. The flaps were brought together using 3-0 Vicryl suture. Laterally in the axilla there was a large amount of redundant tissue to close this a V-Y advancement flap was developed. The subcutaneous tissues were closed using 3-0 Vicryl suture. Closure of the subcuticular suture was with 4-0 Monocryl. Laterally this is reinforced with nylon sutures. The ZACHERY drains were secured with nylon sutures. Patient tolerated the procedure in stable condition. All instrument and sponge counts were correct at the end of the case.
[2022-05-05] MEDS ORDERED: HYDROmorphone 0.5 MG/0.5 ML SYRINGE IVP ONE (13:49)
[2022-05-05] MEDS ORDERED: LACTATED RINGERS 1,000 ML IV ONE (13:59)
[2022-05-05 16:52] LABS: Glucose,Whole Blood 146 mg/dL (70-110)
[2022-05-05] MEDS: DEXTROSE 5%-0.45% NACL 1,000 ML IV SCH ×2 (17:09→23:32)
[2022-05-05] MEDS: HEPARIN SODIUM,PORCINE/PF 5,000 UNIT/0.5 ML SYRINGE SQ SCH ×2 (17:09→23:31)
[2022-05-06 07:33] LABS: Basophils % (A) 0 %; Eosinophils # (A) 0.1 k/uL (0-0.7); Eosinophils % (A) 1 %; HCT 40.6 % (34.0-46.0); HGB 13.2 gm/dL (11.4-16.0); Lymphocytes # (A) 0.8 k/uL (1.0-4.8); Lymphocytes % (A) 9 %; MCH 28.9 pg (25.0-35.0); MCHC 32.5 g/dL (31.0-37.0); Monocytes # (A) 0.6 k/uL (0-1.0); Monocytes % (A) 6 %; Neutrophils # (A) 7.7 k/uL (1.3-7.7); Neutrophils % (A) 83 %; Platelet Count 241 k/uL (150-450); RBC 4.56 m/uL (3.80-5.40); WBC 9.3 k/uL (3.8-10.6)
[2022-05-06] MEDS: LACTATED RINGERS 1,000 ML IV SCH (08:15)
[2022-05-06] MEDS: HEPARIN SODIUM,PORCINE/PF 5,000 UNIT/0.5 ML SYRINGE SQ SCH (08:17)
[2022-05-06] MEDS ORDERED: FAMOTIDINE 20 MG/2 ML VIAL IV SCH (09:00)
[2022-05-06 09:22] VITALS: BP 121/55; PULSE 66; RESP 18; TEMP 98.2
--- NOTE | 2022-05-06 11:27 | P.PN ---
Subjective Progress Note Date: 05/06/22 Principal diagnosis: Invasive ductal carcinoma right breast Sandra is an 82-year-old white female postop day #1 right breast mastectomy and sentinel node biopsy. Postoperatively she is doing well without complaints. ZACHERY output is serous in nature and 20 mL from each drain, she has 2 ZACHERY drains. Objective - Vital Signs Vital signs: Vital Signs Temp 98.2 F 05/06/22 08:00 Pulse 66 05/06/22 08:00 Resp 18 05/06/22 08:00 BP 121/55 05/06/22 08:00 Pulse Ox 93 L 05/06/22 08:00 FiO2 Intake & Output 05/05/22 05/06/22 05/06/22 18:59 06:59 18:59 Intake Total 1120 240 20 Output Total 30 50 Balance 1090 190 20 Weight 111 kg Intake: IV 1120 240 20 Lactated Ringers 1,000 ml 20 240 20 @ 20 mls/hr IV .Q24H ZOË Rx#:[id number] Output: Drainage 50 Right Anterior Lateral 50 Chest Estimated Blood Loss 30 Other: Voiding Method Toilet Toilet # Voids 2 1 - Constitutional General appearance: Present: cooperative - EENT Eyes: Present: EOMI ENT: Present: hearing grossly normal - Respiratory Respiratory: bilateral: CTA - Cardiovascular Heart sounds: normal: S1, S2 - Integumentary Integumentary Comment(s): Incision right chest wall clean and dry no evidence of an infection some mild necrosis at the V-Y advancement flap trifurcation. ZACHERY #1 20 mL serous ZACHERY #2 20 mL serous Dressing was changed - Labs CBC & Chem 7: 05/06/22 06:31 Labs: Abnormal Lab Results - Last 24 Hours (Table) 05/05/22 05/06/22 Range/Units 16:50 06:31 Lymphocytes # 0.8 L (1.0-4.8) k/uL POC Glucose (mg/dL) 146 H (70-110) mg/dL Assessment and Plan Assessment: Impression: Vaginal dryness Atrial fib question Anemia High cholesterol Hypothyroid Plan: Discharge home if okay with medicine Follow-up Dr. Smith 1 week Teaching patient drain [facility]
--- NOTE | 2022-05-06 11:29 | P.DS ---
Providers Attending physician: Jaclyn Temple Consults: 05/05/22 13:00 Consult Physician Routine Consulting Provider: Junior Milton Consult Reason/Comments: medical care Do you want consulting provider notified?: Yes Primary care physician: Anu Ding Plan - Discharge Summary Discharge Rx Participant: Yes New Discharge Prescriptions: No Action Levothyroxine Sodium [Synthroid] 112 mcg PO DAILY Folic Acid 1 mg PO DAILY Fenofibrate 160 mg PO DAILY atenoloL 100 mg PO DAILY Fluticasone Nasal [place] [Flonase Nasal [place]] 1 spray EA NOSTRIL DAILY Celecoxib [CeleBREX] 200 mg PO DAILY Fish Oil/Dha/Epa [Fish Oil 1,200 mg Fish Oil] 1 each PO DAILY Ubidecarenone [Coenzyme Q10] 100 mg PO DAILY flaxseed oiL [[place]-3 Flaxseed Oil] 1,000 mg PO DAILY Valsartan/Hydrochlorothiazide [Valsartan-Hctz 160-25 mg Tab] 1 each PO DAILY Omeprazole 20 mg PO DAILY PRN PRN Reason: Heartburn Melatonin 10 mg PO HS Rosuvastatin [Crestor] 10 mg PO Q72H Acetaminophen [Tylenol Arthritis] 650 mg PO DAILY PRN PRN Reason: Pain Multivitamins, Thera [Multivitamin (formulary)] 1 tab PO DAILY Ferrous Sulfate [Feosol] 325 mg PO DAILY Cholecalciferol [Vitamin D3 (25 Mcg = 1000 Iu)] 25 mcg PO DAILY Discharge Medication List Fenofibrate 160 mg PO DAILY 12/24/17 [History] Folic Acid 1 mg PO DAILY 12/24/17 [History] Levothyroxine Sodium [Synthroid] 112 mcg PO DAILY 12/24/17 [History] atenoloL 100 mg PO DAILY 12/24/17 [History] Melatonin 10 mg PO HS 02/06/22 [History] Rosuvastatin [Crestor] 10 mg PO Q72H 02/06/22 [History] Acetaminophen [Tylenol Arthritis] 650 mg PO DAILY PRN 05/01/22 [History] Celecoxib [CeleBREX] 200 mg PO DAILY 05/01/22 [History] Cholecalciferol [Vitamin D3 (25 Mcg = 1000 Iu)] 25 mcg PO DAILY 05/01/22 [History] Ferrous Sulfate [Feosol] 325 mg PO DAILY 05/01/22 [History] Fish Oil/Dha/Epa [Fish Oil 1,200 mg Fish Oil] 1 each PO DAILY 05/01/22 [History] Fluticasone Nasal [place] [Flonase Nasal [place]] 1 spray EA NOSTRIL DAILY 05/01/22 [History] Multivitamins, Thera [Multivitamin (formulary)] 1 tab PO DAILY 05/01/22 [History] Omeprazole 20 mg PO DAILY PRN 05/01/22 [History] Ubidecarenone [Coenzyme Q10] 100 mg PO DAILY 05/01/22 [History] Valsartan/Hydrochlorothiazide [Valsartan-Hctz 160-25 mg Tab] 1 each PO DAILY 05/01/22 [History] flaxseed oiL [[place]-3 Flaxseed Oil] 1,000 mg PO DAILY 05/01/22 [History] Follow up Appointment(s)/Referral(s): Jaclyn Temple MD [STAFF PHYSICIAN] - 05/14/22 2:40 pm (May 14, 2022 at 2:40) [facility], [NON-STAFF] - 1 Week Activity/Diet/Wound Care/Special Instructions: Teach patient drain care Do not drive until seen by Dr. Smith Change dressing daily, but keep Mckay wrap in place after dressing change Discharge Disposition: HOME WITH HOME HEALTH SERVICES
== END 2022-05-06 14:06 | disposition home health service (06) ==
LOC: OR 07:17 → 2SICU 13:21 → OR 05-06 14:06
PROVIDERS: ATTEND Surgery
DX: C50.411 Malignant neoplasm of upper-outer quadrant of right female breast (principal); E78.5 Hyperlipidemia, unspecified; I10 Essential (primary) hypertension; I48.91 Unspecified atrial fibrillation; G47.33 Obstructive sleep apnea (adult) (pediatric); E07.9 Disorder of thyroid, unspecified
CPT/HCPCS: 19303; 38525; 38900; 14000; 85025 ×2; 88342; 88307; 38792; A9520; J0330; J1100; J2405; J0690; J2001 ×2; J3010; J1170 ×2; J2704; J1644 ×2; 88309; 88341

== ENCOUNTER → 2022-05-22 | Outpatient (CLI) | payer MEDICARE ==
[2022-05-22 13:45] VITALS: BP 116/69; PULSE 70; RESP 17; TEMP 98.9
--- NOTE | 2022-05-22 13:46 | P.PN ---
Progress Note - Text Progress Note Date: 05/22/22 Sandra is an 82 year old white female status post right breast mastectomy and 1 node of 9 with micromets/ 1.5 MM with extranodal extension. The surgery was on 05-05-22. The tumor was 2.5 Cm with a second focus of DCIS. lungs: clear Heart: RRR incision: clean and dry, mild erythema lateral aspect of incision improved ZACHERY output #2 minimal, drain #1 sterile approximately 60 mL per day serous in nature Patient was recently seen by Dr. Reddy and given a prescription for anastrozole Patient had appointment with radiation oncology today and no radiation recommended Plan: Follow-up radiation oncology no radiation recommended start anastrozole Follow-up next week for possible drain # 1 removal await sugture removal a VY advancement flap until next week CC;Dr. Reed
== END ==
LOC: WWCWWP 13:10
PROVIDERS: ATTEND Surgery
DX: Z48.817 Encounter for surgical aftercare following surgery on the skin and subcutaneous tissue (principal); Z90.11 Acquired absence of right breast and nipple; Z87.891 Personal history of nicotine dependence; Z88.1 Allergy status to other antibiotic agents; Z91.040 Latex allergy status; Z88.8 Allergy status to other drugs, medicaments and biological substances

== ENCOUNTER → 2022-05-22 | Outpatient (CLI) | payer MEDICARE ==
--- NOTE | 2022-05-24 08:05 | BD ---
EXAMINATION TYPE: Axial Bone Density DATE OF EXAM: 05/22/2022 COMPARISON: 01-21-2016 CLINICAL HISTORY: 82 years year old Female. ICD-10 CODE: M8588 OTH DISRD OF BONE DENSITY Height: 63IN Weight: 243 FRAX RISK QUESTIONS: History of Fracture in Adulthood: YES Secondary Osteoporosis: 3. Menopause before 45: HYSTERECTOMY AT 46 RISK FACTORS HISTORY OF: Family History of Osteoporosis: YES Active: YES Postmenopausal woman: YES If Premenopausal, do you have irregular periods: Take estrogen and/or progesterone medications: ESTROGEN, NONE CURRENT How lon-4 YEARS Lost more than 2 inches in height since high school: YES MEDICATIONS: Thyroid Medications: Which medication: Levothyroxine How Lon+ YEARS Additional Medications: BP MEDS, CHOLESTEROL MEDS, OMEPRAZOLE, CALCIUM, VITAMIN D, CARDIAC MEDS Additional History: BREAST CA 2021, ANEMIA, FOOT FX EXAM MEASUREMENTS: Bone mineral densitometry was performed using the Wave[employer] System. Bone mineral density as measured about the Lumbar spine is: ----- L1-L4(G/cm2): 1.351 T Score Values are as follows: ----- L1: 1.4 ----- L2: 0.9 ----- L3: 2.5 ----- L4: 0.9 ----- L1-L4: 1.4 Bone mineral density has: Increased 8.7% since study of: 01-21-2016 Bone mineral density about the R hip (g/cm2): 1.061 Bone mineral density about the L hip (g/cm2): 1.126 T Score values are as follows: -----R Neck: -0.4 -----L Neck: -0.4 -----R Total: 0.4 -----L Total: 0.9 Bone mineral density has: Increased 10.5% since study of: 01-21-2016 FRAX%s: The graph provided illustrates a 16.0% chance for a major osteoporotic fx and a 2.3% chance f or the hips probability for fx in 10 years time. IMPRESSION: Normal (Values between +1 and -1 indicate normal bone mass). Consider repeating this study in 5 year s or sooner if there is some new clinical indication. NOTE: T-SCORE=SD OF THE YOUNG ADULT MEAN.
== END | disposition home or self-care (01) ==
LOC: RADBDWWP 13:11
PROVIDERS: ATTEND Internal Medicine Hematology & Oncology
DX: C50.419 Malignant neoplasm of upper-outer quadrant of unspecified female breast (principal); Z78.0 Asymptomatic menopausal state
CPT/HCPCS: 77080

== ENCOUNTER → 2022-05-29 | Outpatient (CLI) | payer MEDICARE ==
--- NOTE | 2022-05-29 08:52 | P.PN ---
Progress Note - Text Progress Note Date: 05/29/22 Sandra is an 82 year old white female status post right breast mastectomy and 1 node of 9 with micromets/ 1.5 MM with extranodal extension. The surgery was on 05-05-22. The tumor was 2.5 Cm with a second focus of DCIS. lungs: clear Heart: RRR incision: clean and dry, mild erythema lateral aspect of incision improved Patient has only one ZACHERY in place however the output is about 75 mL per day of serous fluid Patient was recently seen by Dr. Reddy and given a prescription for anastrozole Patient had appointment with radiation oncology and no radiation recommended The patient was seen by radiation oncology and [id number] and has opted to forego radiation therapy. That note is reviewed from Dr. Barth. Plan: Follow-up radiation oncology no radiation recommended start anastrozole Follow-up next week for possible drain # 1 removal Suture removal lateral aspect of incision Prescription for Keflex
[2022-05-29 09:55] VITALS: BP 128/77; PULSE 67; RESP 17; TEMP 98.7
== END | disposition home or self-care (01) ==
LOC: WWCWWP 08:34
PROVIDERS: ATTEND Surgery
DX: Z53.9 Procedure and treatment not carried out, unspecified reason (principal)

== ENCOUNTER → 2022-06-05 | Outpatient (CLI) | payer MEDICARE ==
[2022-06-05 12:16] VITALS: BP 142/84; PULSE 74; RESP 13; TEMP 98.2
--- NOTE | 2022-06-05 12:27 | P.PN ---
Progress Note - Text Progress Note Date: 06/05/22 Sandra is an 82 year old white female status post right breast mastectomy and 1 node of 9 with micromets/ 1.5 MM with extranodal extension. The surgery was on 05-05-22. The tumor was 2.5 Cm with a second focus of DCIS. lungs: clear Heart: RRR incision: clean and dry, no evidence of infection Patient has only one ZACHERY in place minimal Patient was recently seen by Dr. Reddy and given a prescription for anastrozole Patient had appointment with radiation oncology and no radiation recommended Plan: Follow-up radiation oncology no radiation recommended start anastrozole Drain removal Follow-up 4 months CC: Dr. Ding
== END | disposition home or self-care (01) ==
LOC: WWCWWP 11:31
PROVIDERS: ATTEND Surgery
DX: Z53.9 Procedure and treatment not carried out, unspecified reason (principal)

== ENCOUNTER → 2022-09-23 | Outpatient (CLI) | payer MEDICARE ==
--- NOTE | 2022-09-23 12:03 | P.PN ---
Subjective DATE: 09/23/2022 FOLLOW UP VISIT. Patient with obstructive sleep apnea hypopnea syndrome return to sleep center for follow-up visit. Information from previous visit have been reviewed. Presently patient is using, CPAP unit, because BiPAP unit which she used before had some problems. Patient is using PAP equipment every night for the whole night, getting PAP supplies in time. The patient does not have significant problems with the mask, PAP unit and humidification. [place] sleepiness scale is 6, which is normal. I checked information from PAP unit. PAP unit pressure 7-15, average 15 cm H2O. Usage is 100 % for more then 4 hours, average 8.7 hours per night. Leak is 0 l/m, which is in acceptable range. Apnea Hypopnea Index is 5.9, which is slightly above normal. Apnea-hypopnea index on BiPAP 19/15 during previous visit was 1.5. MEDICATIONS:1. Atenolol 100 mg once a day 2. Fenofibrate 160 mg once a day 3. Levothyroxine 112 g once a day 4. Valsartan/hydrochlorothiazide 160/25 mg once a day 5., Rosuvastatin 10 mg every other day 6. Fluticasone spray 7. anastrozole 1 mg once a day During physical exam: GENERAL: A pleasant patient without any distress. VITAL SIGNS: BP 158/86, HR 64, RR 16, weight 247.4, temperature 97.4, oxygen saturation at room air 96% . HEENT: PERRLA, EOMI.low position of soft palate, Mallapati 4 . NECK: Supple. No JVD. LUNGS: Clear to percussion and to auscultation. Good air exchange. No wheezing or rhonchi. HEART: S1, S2 regular. ABDOMEN: Soft and nontender. Obese EXTREMITIES: No clubbing or cyanosis. ATMOSPHERIC TECHNICIAN: Awake, alert, and oriented x3. No focal deficit. Impressions: 1. Obstructive sleep apnea-hypopnea syndrome. Patient demonstrated great compliance with treatment, benefiting from treatment. 2. Status post right mastectomy for breast see in April 2022. 3. Obesity. 4. Hypertension. 5. History of cardiac arrhythmia. 6. Hypothyroidism. 7. History of iron deficiency anemia. 8. Acid reflux. 9. Status post bilateral knee replacement. Plan: 1. Continue using PAP equipment every night for the whole night. I increased maximal pressure in AutoPap unit to 17 cm of water. 2. To change air filter at least 1-2 times per month. 3. PAP unit should stay lower then position of the head. 4. Advised patient to remove all remaining water from humidifier canister daily and make it dry after each usage. Refill canister with fresh distilled water before each usage. 5. Sleep hygiene with regular time in bed for at least 8 hours. 6. Precautions related to driving. No driving if feel any sleepiness. 7. I will maintain prescription for PAP supplies including mask, tube, filters. 8. Follow up visit in 4 months or earlier if patient has any problems. 9. Watching and losing weight. Thank you very much for allowing me to participate in the management of your patient. Sharif Helton MD, PhD, FAASM. Diplomat of [place] [employer], Sleep Medicine Board by [place] [employer] [facility]
== END ==
LOC: SLEEP 11:05
PROVIDERS: ATTEND Internal Medicine
DX: G47.33 Obstructive sleep apnea (adult) (pediatric) (principal); E66.9 Obesity, unspecified; I10 Essential (primary) hypertension; E03.9 Hypothyroidism, unspecified; K21.9 Gastro-esophageal reflux disease without esophagitis; Z96.653 Presence of artificial knee joint, bilateral; Z86.2 Personal history of diseases of the blood and blood-forming organs and certain disorders involving the immune mechanism; Z86.79 Personal history of other diseases of the circulatory system; Z90.11 Acquired absence of right breast and nipple; Z99.89 Dependence on other enabling machines and devices; Z79.890 Hormone replacement therapy; Z88.1 Allergy status to other antibiotic agents; Z91.048 Other nonmedicinal substance allergy status; Z87.891 Personal history of nicotine dependence
CPT/HCPCS: 99212

== ENCOUNTER → 2022-10-01 | Outpatient (CLI) | payer MEDICARE ==
--- NOTE | 2022-10-01 11:11 | P.PN ---
Subjective Progress Note Date: 10/01/22 right breast invasive ductal cancer Sandra is an 82 year old white female seen in consultation for DR. Ding regarding a mammographic abnormality in the right breast. The patient was able to feel a lump in her right breast about three weels prior. She had a bilateral mammogram on which led to an ultrasound of the right breast. No specific lesions of concern were identified in the left breast. The ultrasound revealed a mass in the right breast for which ultrasound-guided core biopsy was recommended. This was a spiculated mass in the 11 OClock position, 2.6 CM in size. About 50 years ago she had a right breast biopsy which was benign and a benign lipoma removed from the right axilla. She has no nipple discharge or skin changes. Core biopsy was done on 02-20-22; pathology revealed a G2 invasive ductal cancer ER+Pr+Her2-; The patient tolerated the procedure without difficulty. Note from radiation oncology DR. Barth 03-12-22 reviewed (stage IIA T2N1M0, ER+Pr+Her2- also with high grade DCIS) Oncotype: 19 chemotherapy benefit <1% She underwent a right mastectomy on . The tumor was 2.5 cm. One note of 9 had micrometastatic disease/1.5 mm with extranodal extension. She did not have radiation therapy She is tolerating anestrazole Her last mammogram was 01-30-22 Caffeine: 1 cup/day nicotine: none chocolate: occasional Family History: mother: skin cancer paternal cousin breast cancer in her late 50's Hormonal History: menarche: 14 , breast fed: no, age at first : 28 menopause: hysterectomy at 43, no cancer, took both ovaries BCP: 7 years in her 20's and 30's hormones: was on estrogen after her hysterectomy for 20 years has recently been on estrogen for vaginal dryness Surgical History: Total abdominal hysterectomy bilateral salpingo-oophorectomy/endometriosis right breast biopsy lipoma foot surgery tubaligation appendectomy bilateral knee replacement Allergies: Zoloft adhesize tape erythmycin Medical History: vaginal dryness A-fib anemia high cholesterol hypothyroid Social History: nicotine: none alcohol: none drug: CBD in the past for arthritis - Constitutional Constitutional: Denies chills, Denies fever - EENT Eyes: bilateral dry eye, denies blurred vision, denies pain Ears: bilateral: decreased hearing, deny: tinnitus Ears, nose, mouth and throat: Denies headache, Denies sore throat - Breasts Breasts: bilateral: as per HPI - Cardiovascular Comment: A-fib Cardiovascular: Reports as per HPI - Respiratory Respiratory: Denies cough - Gastrointestinal Gastrointestinal: Denies abdominal pain, Denies diarrhea, Denies nausea, Denies vomiting - Genitourinary (Female) Genitourinary: Denies dysuria, Denies hematuria - Menstruation Menstruation: Reports post hysterectomy - Musculoskeletal Comment: arthritis - Integumentary Integumentary: Denies pruritus, Denies rash - Neurological Neurological: Denies numbness, Denies weakness - Psychiatric Psychiatric: Denies anxiety, Denies depression - Endocrine Endocrine: Denies fatigue, Denies weight change - Hematologic/Lymphatic Comment: none - Allergic/Immunologic Allergic/Immunologic: Reports as per HPI Objective - Constitutional General appearance: Present: cooperative - EENT Eyes: Present: EOMI ENT: Present: hearing grossly normal - Neck Neck: Present: normal ROM - Respiratory Respiratory: bilateral: CTA - Cardiovascular Rhythm: regular Heart sounds: normal: S1, S2 - Gastrointestinal General gastrointestinal: Present: soft - Integumentary Integumentary: Present: normal turgor - Musculoskeletal Musculoskeletal Comment(s): uses a cane - Psychiatric Psychiatric: Present: A&O x's 3, appropriate affect, intact judgment & insight - Additional findings Additional findings: Breast Exam: BRA: 36B Inspection: Bilateral grade 3 ptosis Palpation: Right breast: Multi-positional exam mass at approximately 11:30 to 12:00 approximately 2 cm in size otherwise fibrocystic changes Right axilla: No discrete dominant masses or notches of concern Left breast: Multi-positional exam fibrocystic changes no dominant masses or notches of concern Left axilla: No adenopathy of concern Assessment and Plan Assessment: Impression: Patient status post mastectomy for a right breast 2.5 cm invasive ductal carcinoma. Also had DCIS and LCIS. One of 9 nodes positive for micrometastatic disease. Evidence of recurrent disease Plan: Left breast mammogram in January 2023 with appointment at that time Continue to follow with medical oncology CC: Dr. Ding
[2022-10-01 11:56] VITALS: BP 160/73; PULSE 68; RESP 17; TEMP 98
== END ==
LOC: WWCWWP 10:44
PROVIDERS: ATTEND Surgery
DX: Z90.13 Acquired absence of bilateral breasts and nipples (principal); D05.11 Intraductal carcinoma in situ of right breast; I48.91 Unspecified atrial fibrillation; E03.9 Hypothyroidism, unspecified; E78.00 Pure hypercholesterolemia, unspecified; Z91.048 Other nonmedicinal substance allergy status; Z88.1 Allergy status to other antibiotic agents; Z88.8 Allergy status to other drugs, medicaments and biological substances; Z87.891 Personal history of nicotine dependence

== ENCOUNTER → 2023-01-29 | Outpatient (CLI) | payer MEDICARE ==
--- NOTE | 2023-01-29 08:44 | US ---
EXAMINATION TYPE: US abdomen limited DATE OF EXAM: 01/29/2023 COMPARISON: CT 2012 CLINICAL INDICATION: Female, 82 years old with history of R22.9 SWELLING, MASS AND LUMP; Pt states 2 palpable areas superficial abdomen At 1st palpable superficial abdominal lump (RUQ) there is an isoechoic area= 2.3 x 1.4 x 2.2 cm non -vascular At 2nd palpable superficial abdominal lump (right midline umbilicus) there is a calcified area= 2.4 x 1.5 x 3.8 cm FINDINGS: First lesion favors lipoma or other benign etiology. Second area likely corresponds to an oval fat density lesion on CT axial image 52 favoring lipoma the presence of new peripheral wall calc ification is noted. I would advise repeat CT to further evaluate this subcutaneous lesion to rule out other etiology. IMPRESSION: As above.
== END | disposition home or self-care (01) ==
LOC: RADUSWWP 08:02
PROVIDERS: ATTEND Surgery Plastic and Reconstructive Surgery
DX: R19.09 Other intra-abdominal and pelvic swelling, mass and lump (principal); R22.9 Localized swelling, mass and lump, unspecified
CPT/HCPCS: 76705

== ENCOUNTER → 2023-02-04 | Outpatient (CLI) | payer MEDICARE ==
--- NOTE | 2023-02-04 14:27 | USB ---
Reason for Exam: Additional evaluation requested from abnormal screening. Patient History: Menarche at age 14. First Full-Term at age 28. Left ovary removed at age 47. Right ovary removed at age 47. Hysterectomy at age 47. Postmenopausal. Breast cancer, right, age 82. Estrogen for 15 years, 6 months, until age 65. Progesterone for 5 years from age 62 until age 67. Hormonal Contraceptives for 3 years until age 26. Unspecified Hormone, from age 78 until age 81. 05/01/2022, Mastectomy on the Right side. 02/19/2022, Malignant US biopsy breast VAD RT on the right side. 1969, Excisional Biopsy on the Right side. 1969, Excisional Biopsy on the Right side. Technique: Method: Targeted. Prior Study Comparison: 07/19/2018 Bilateral Screening Mammogram, [facility]. 01/30/2022 Bilateral MG 3D diag mammo w/cad YONAS, [facility]. 02/19/2022 Right MG diagnostic mammo RT wo CAD, [facility]. Findings: The periareolar of the left breast, the axilla of the left breast and the retroareolar of the left breast were scanned. Imaged: Ultrasound imaging of: All 4 quadrants, the retroareolar region and axilla. Multiple anechoic cysts some with thin septations are present. The largest measuring up to 9 x 6 mm with thin septation versus 2 adjoining cysts located at 6:00 in the periareolar region. Multiple other smaller cysts measuring 4 to 6 mm are present one of which may represent finding on same day mammogram. No solid masses visualized. Overall Assessment: Probably benign, BI-RAD 3 Management: Diagnostic Breast Ultrasound of the left breast in 6 months. Diagnostic Mammogram of the left breast in 6 months. A clinical breast exam by your physician is recommended on an annual basis and results should be correlated with mammographic findings. This exam should not preclude additional follow-up of suspicious palpable abnormalities. Results were given to the patient verbally at the time of exam. Electronically signed and approved by: Memo Jones DO
[2023-02-04 15:02] VITALS: BP 171/100; PULSE 60; RESP 18; TEMP 97.6
--- NOTE | 2023-02-04 15:18 | P.PN ---
Subjective Progress Note Date: 02/04/23 Principal diagnosis: right breast invasive ductal cancer right breast invasive ductal cancer; [id number]+Her2- (2021) Sandra is an 82 year old white female seen in consultation for DR. Ding regarding a mammographic abnormality in the right breast. The patient was able to feel a lump in her right breast about three weeks prior. She had a bilateral mammogram on which led to an ultrasound of the right breast. No specific lesions of concern were identified in the left breast. The ultrasound revealed a mass in the right breast for which ultrasound-guided core biopsy was recommended. This was a spiculated mass in the 11 OClock position, 2.6 CM in size. About 50 years ago she had a right breast biopsy which was benign and a benign lipoma removed from the right axilla. She has no nipple discharge or skin changes. Core biopsy was done on 02-20-22; pathology revealed a G2 invasive ductal cancer ER+Pr+Her2-; The patient tolerated the procedure without difficulty. Note from radiation oncology DR. Barth 03-12-22 reviewed (stage IIA T2N1M0, ER+Pr+Her2- also with high grade DCIS) Oncotype: 19 chemotherapy benefit <1% She underwent a right mastectomy on . The tumor was 2.5 cm. One note of 9 had micrometastatic disease/1.5 mm with extranodal extension. She did not have radiation therapy She is tolerating anestrazole Her last mammogram was 02-04-22 she also had an ultrasound the same date; multiople cyst noted, BIRAD 3 repeat mammogram in 6 months She is not complaining of any post masses or nodules of concern in her right breast. Or any lesions on her chest wall. Caffeine: 1 cup/day nicotine: none chocolate: occasional Family History: mother: skin cancer paternal cousin breast cancer in her late 50's Hormonal History: menarche: 14 , breast fed: no, age at first : 28 menopause: hysterectomy at 43, no cancer, took both ovaries BCP: 7 years in her 20's and 30's hormones: was on estrogen after her hysterectomy for 20 years has recently been on estrogen for vaginal dryness Surgical History: Total abdominal hysterectomy bilateral salpingo-oophorectomy/endometriosis right breast biopsy lipoma foot surgery tubaligation appendectomy bilateral knee replacement right mastectomy and SNB Allergies: Zoloft adhesize tape erythmycin Medical History: vaginal dryness A-fib anemia high cholesterol hypothyroid Social History: nicotine: none alcohol: none drug: CBD in the past for arthritis - Constitutional Constitutional: Denies chills, Denies fever - EENT Eyes: bilateral dry eye, denies blurred vision, denies pain Ears: bilateral: decreased hearing, deny: tinnitus Ears, nose, mouth and throat: Denies headache, Denies sore throat - Breasts Breasts: bilateral: as per HPI - Cardiovascular Comment: A-fib Cardiovascular: Reports as per HPI - Respiratory Respiratory: Denies cough - Gastrointestinal Gastrointestinal: Denies abdominal pain, Denies diarrhea, Denies nausea, Denies vomiting - Genitourinary (Female) Genitourinary: Denies dysuria, Denies hematuria - Menstruation Menstruation: Reports post hysterectomy - Musculoskeletal Comment: arthritis - Integumentary Integumentary: Denies pruritus, Denies rash - Neurological Neurological: Denies numbness, Denies weakness - Psychiatric Psychiatric: Denies anxiety, Denies depression - Endocrine Endocrine: Denies fatigue, Denies weight change - Hematologic/Lymphatic Comment: none - Allergic/Immunologic Allergic/Immunologic: Reports as per HPI Objective - Constitutional General appearance: Present: cooperative - EENT Eyes: Present: EOMI ENT: Present: hearing grossly normal - Neck Neck: Present: normal ROM - Respiratory Respiratory: bilateral: CTA - Cardiovascular Rhythm: regular Heart sounds: normal: S1, S2 - Integumentary Integumentary Comment(s): Examination of anterior abdominal wall reveals a soft tissue mass superficially in the right upper outer quadrant region as well as in the lower right abdomen Integumentary: Present: normal turgor - Musculoskeletal Musculoskeletal Comment(s): uses a cane - Psychiatric Psychiatric: Present: A&O x's 3, appropriate affect, intact judgment & insight - Additional findings Additional findings: Breast Exam: BRA: 36B Inspection: Grade 3 ptosis left breast, right chest wall status post mastectomy Palpation: Right chest wall: No evidence of recurrent cancer Right axilla: No adenopathy of concern Left breast: Multi-positional exam fibrocystic changes no dominant masses or nodules of concern Left axilla: No adenopathy of concern Assessment and Plan Assessment: Impression/Plan: No evidence of recurrent right breast cancer Recent left breast mammogram and ultrasound BIRADS 3 repeat left breast mammogram in 6 months Continue aromatase inhibitor Continue follow-up with medical oncology Patient will follow with Dr. Corley regarding abdominal nodules CC: DR. Ding
== END ==
LOC: WWCWWP 12:41
PROVIDERS: ATTEND Surgery
DX: C50.911 Malignant neoplasm of unspecified site of right female breast (principal); E03.9 Hypothyroidism, unspecified; E78.00 Pure hypercholesterolemia, unspecified; I48.91 Unspecified atrial fibrillation; Z17.0 Estrogen receptor positive status [ER+]; Z51.11 Encounter for antineoplastic chemotherapy; Z78.0 Asymptomatic menopausal state; Z88.8 Allergy status to other drugs, medicaments and biological substances; Z90.11 Acquired absence of right breast and nipple; Z90.49 Acquired absence of other specified parts of digestive tract; Z90.721 Acquired absence of ovaries, unilateral; Z96.653 Presence of artificial knee joint, bilateral; Z88.1 Allergy status to other antibiotic agents; Z91.048 Other nonmedicinal substance allergy status; Z87.891 Personal history of nicotine dependence

== ENCOUNTER → 2023-02-04 | Outpatient (CLI) | payer MEDICARE ==
--- NOTE | 2023-02-04 14:01 | MM ---
Reason for Exam: Additional evaluation requested from prior study. Last screening mammogram was performed 12 month(s) ago. Patient History: Menarche at age 14. First Full-Term at age 28. Left ovary removed at age 47. Right ovary removed at age 47. Hysterectomy at age 47. Postmenopausal. Breast cancer, right, age 82. Estrogen for 15 years, 6 months, until age 65. Progesterone for 5 years from age 62 until age 67. Hormonal Contraceptives for 3 years until age 26. Unspecified Hormone, from age 78 until age 81. 05/01/2022, Mastectomy on the Right side. 02/19/2022, Malignant US biopsy breast VAD RT on the right side. 1969, Excisional Biopsy on the Right side. 1969, Excisional Biopsy on the Right side. Prior Study Comparison: 07/19/2018 Bilateral Screening Mammogram, [facility]. 01/30/2022 Bilateral MG 3D diag mammo w/cad YONAS, [facility]. 02/19/2022 Right MG diagnostic mammo RT wo CAD, [facility]. Tissue Density: Left: The breast tissue is heterogeneously dense. This may lower the sensitivity of mammography. Findings: Analyzed By CAD. There is a asymmetry measuring 6 mm 17 mm from the nipple on MLO view only. This is anterior depth retroareolar region. Not definitively seen on CC view may be slightly medial. Scattered benign appearing consultations are also present. Overall Assessment: Incomplete: need additional imaging evaluation, BI-RAD 0 Management: Diagnostic Breast Ultrasound of the left breast. Ultrasound retroareolar region for further workup. Results were given to the patient verbally at the time of exam. Patient should continue monthly self-breast exams. A clinical breast exam by your physician is recommended on an annual basis. This exam should not preclude additional follow-up of suspicious palpable abnormalities. Note on Rosanne scores and lifetime risk: 1. A Rosanne score greater than 3% is considered moderate risk. If this is the case, consider specialist referral to assess eligibility for a risk reducing agent. 2. If overall lifetime risk for the development of breast cancer is 20% or higher, the patient may qualify for future screening with alternating mammogram and breast MRI. Electronically signed and approved by: Memo Jones DO
== END | disposition home or self-care (01) ==
LOC: RADMAMWWP 12:42
PROVIDERS: ATTEND Surgery
DX: Z85.3 Personal history of malignant neoplasm of breast (principal); Z78.0 Asymptomatic menopausal state; Z90.11 Acquired absence of right breast and nipple
CPT/HCPCS: 77065; G0279; 77061

== ENCOUNTER → 2023-05-01 | Outpatient (CLI) | payer MEDICARE ==
--- NOTE | 2023-05-01 13:10 | MR ---
EXAMINATION TYPE: MR lumbar spine wo con DATE OF EXAM: 05/01/2023 9:37 AM COMPARISON: 07/25/2013. CLINICAL INDICATION: Female, 83 years old with history of M54.16 LUMBAR RADICULOPATHY; Lower back suni n, LLE radiculopathy. TECHNIQUE: Multi planar, multi sequence imaging was performed utilizing: T1-weighted, T2-weighted, a nd turbo inversion recovery imaging of the lumbar spine. IV Contrast: None. FINDINGS: Alignment: The lumbar vertebral bodies have preserved heights with grade 1 anterolisthesis of L4 on L 5. Cord: The conus medullaris and the distal spinal cord appear unremarkable with regards to their signa l intensity and morphology. Bones/Discs: Multilevel degeneration changes throughout the spine with disc space narrowing, osteophy te formation, Modic endplate changes and facet joint arthropathy. T12-L1: Disc uncovering from grade 1 anterolisthesis and facet joint arthropathy with mild spinal can al stenosis and moderate bilateral neural foraminal stenosis. L1-L2: Disc bulge and facet joint arthropathy result in mild spinal canal and mild to moderate bilate ral neural foraminal stenosis. L2-L3: Disc bulge and facet joint arthropathy without significant spinal canal stenosis and moderate to severe bilateral neural foraminal stenosis. L3-L4: There is a left central disc protrusion superimposed on disc bulge with severe spinal canal st enosis there is severe left and moderate to severe right neural foraminal stenosis. L4-L5: Disc uncovering from grade 1 anterolisthesis and facet joint arthropathy with mild spinal yolanda l stenosis and mild to moderate bilateral neural foraminal stenosis. L5-S1: The disc is rounded posterior morphology without significant spinal canal stenosis. Facet join t arthropathy with mild neural foraminal stenosis. No significant spinal canal or neural foraminal stenosis in the remainder of the visualized levels. Other findings: Extrarenal pelvis on the left IMPRESSION: 1. 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 There is associated severe left neural foraminal stenosis at this level. 2. Moderate degeneration changes with grade 1 anterior base of L4 and L5. Findings have progressed f rom CT.
== END | disposition home or self-care (01) ==
LOC: RADMRIMAIN 08:50
PROVIDERS: ATTEND Family Medicine
DX: M48.061 Spinal stenosis, lumbar region without neurogenic claudication (principal); M99.63 Osseous and subluxation stenosis of intervertebral foramina of lumbar region; M47.26 Other spondylosis with radiculopathy, lumbar region
CPT/HCPCS: 72148

== ENCOUNTER → 2023-08-12 | Outpatient (CLI) | payer MEDICARE ==
--- NOTE | 2023-08-12 14:26 | MM ---
Reason for Exam: Follow-up at short interval from prior study. Last screening mammogram was performed 6 month(s) ago. Patient History: Menarche at age 14. First Full-Term at age 28. Left ovary removed at age 47. Right ovary removed at age 47. Hysterectomy at age 47. Postmenopausal. Breast cancer, right, age 82. Estrogen for 15 years, 6 months, until age 65. Progesterone for 5 years from age 62 until age 67. Hormonal Contraceptives for 3 years until age 26. Unspecified Hormone, from age 78 until age 81. 05/01/2022, Mastectomy on the Right side. 02/19/2022, Malignant US biopsy breast VAD RT on the right side. 1969, Excisional Biopsy on the Right side. 1969, Excisional Biopsy on the Right side. Prior Study Comparison: 01/30/2022 Bilateral MG 3D diag mammo w/cad YONAS, [facility]. 02/19/2022 Right MG diagnostic mammo RT wo CAD, [facility]. 02/04/2023 Left MG 3D diag mammo w/cad LT, [facility]. Tissue Density: Left: The breast tissue is heterogeneously dense. This may lower the sensitivity of mammography. Findings: Analyzed By CAD. Chronic nodularity persists. Stable benign calcifications. No evidence for spiculation or distortion. Overall Assessment: Incomplete: need additional imaging evaluation, BI-RAD 0 Management: Diagnostic Breast Ultrasound of the left breast. . Results were given to the patient verbally at the time of exam. Patient should continue monthly self-breast exams. A clinical breast exam by your physician is recommended on an annual basis. This exam should not preclude additional follow-up of suspicious palpable abnormalities. Note on Rosanne scores and lifetime risk: 1. A Rosanne score greater than 3% is considered moderate risk. If this is the case, consider specialist referral to assess eligibility for a risk reducing agent. 2. If overall lifetime risk for the development of breast cancer is 20% or higher, the patient may qualify for future screening with alternating mammogram and breast MRI. Electronically signed and approved by: Romero Delgado M.D. Radiologis
--- NOTE | 2023-08-12 15:20 | USB ---
Reason for Exam: Follow-up at short interval from prior study. Patient History: Menarche at age 14. First Full-Term at age 28. Left ovary removed at age 47. Right ovary removed at age 47. Hysterectomy at age 47. Postmenopausal. Breast cancer, right, age 82. Estrogen for 15 years, 6 months, until age 65. Progesterone for 5 years from age 62 until age 67. Hormonal Contraceptives for 3 years until age 26. Unspecified Hormone, from age 78 until age 81. 05/01/2022, Mastectomy on the Right side. 02/19/2022, Malignant US biopsy breast VAD RT on the right side. 1969, Excisional Biopsy on the Right side. 1969, Excisional Biopsy on the Right side. Technique: Method: Targeted. Prior Study Comparison: 01/30/2022 Bilateral MG 3D diag mammo w/cad YONAS, [facility]. 02/19/2022 Right MG diagnostic mammo RT wo CAD, [facility]. 02/04/2023 Left MG 3D diag mammo w/cad LT, [facility]. Findings: The periareolar of the left breast, the axilla of the left breast and the retroareolar of the left breast were scanned. Stable appearing cysts are noted the 6:00 location left breast measuring 9 x 6 mm. Additional small cyst at 1:00 measuring 4 x 4 mm. No solid masses seen. Additional follow-up recommended at the time of patient's annual screening.. Overall Assessment: Probably benign, BI-RAD 3 Management: Diagnostic Mammogram of the left breast in 6 months. A clinical breast exam by your physician is recommended on an annual basis and results should be correlated with mammographic findings. This exam should not preclude additional follow-up of suspicious palpable abnormalities. Results were given to the patient verbally at the time of exam. Electronically signed and approved by: Romero Delgado M.D. Radiologis
== END | disposition home or self-care (01) ==
LOC: RADMAMWWP 13:59
PROVIDERS: ATTEND Surgery
DX: R92.332 Mammographic heterogeneous density, left breast (principal); Z85.3 Personal history of malignant neoplasm of breast; Z78.0 Asymptomatic menopausal state
CPT/HCPCS: 77065; 76642; G0279; 77061

== ENCOUNTER → 2023-08-26 | Outpatient (CLI) | payer MEDICARE ==
[2023-08-26 13:27] VITALS: BP 186/99; PULSE 75; RESP 18; TEMP 98.6
--- NOTE | 2023-08-26 13:34 | P.PN ---
Subjective Progress Note Date: 08/26/23 right breast invasive ductal cancer; [id number]+RI+Her2- (2021) Sandra is an 83 year old white female seen in consultation for DR. Ding regarding a mammographic abnormality in the right breast. The patient was able to feel a lump in her right breast about three weeks prior. She had a bilateral mammogram on which led to an ultrasound of the right breast. No specific lesions of concern were identified in the left breast. The ultrasound revealed a mass in the right breast for which ultrasound-guided core biopsy was recommended. This was a spiculated mass in the 11 OClock position, 2.6 CM in size. About 50 years ago she had a right breast biopsy which was benign and a benign lipoma removed from the right axilla. She has no nipple discharge or skin changes. Core biopsy was done on 02-20-22; pathology revealed a G2 invasive ductal cancer ER+Pr+Her2-; The patient tolerated the procedure without difficulty. Note from radiation oncology DR. Barth 03-12-22 reviewed (stage IIA T2N1M0, ER+Pr+Her2- also with high grade DCIS) Oncotype: 19 chemotherapy benefit <1% She underwent a right mastectomy on . The tumor was 2.5 cm. One node of 9 had micrometastatic disease/1.5 mm with extranodal extension. She did not have radiation therapy She is tolerating anestrazole from Dr. Reddy Her last mammogram was 08-12-23 she also had an ultrasound the same date; multiople cyst noted, BIRAD 3 repeat mammogram in 6 months She is not complaining of any new masses or nodules of concern in her left breast. Or any lesions on her chest wall. Caffeine: 1 cup/day nicotine: none chocolate: occasional Family History: mother: skin cancer paternal cousin breast cancer in her late 50's Hormonal History: menarche: 14 , breast fed: no, age at first : 28 menopause: hysterectomy at 43, no cancer, took both ovaries BCP: 7 years in her 20's and 30's hormones: was on estrogen after her hysterectomy for 20 years no estrogen at this time Surgical History: Total abdominal hysterectomy bilateral salpingo-oophorectomy/endometriosis right breast biopsy lipoma foot surgery tubaligation appendectomy bilateral knee replacement right mastectomy and SNB Allergies: Zoloft adhesize tape erythmycin Medical History: vaginal dryness A-fib anemia high cholesterol hypothyroid back epidural steriods for pain after an injury Social History: nicotine: none alcohol: none drug: CBD in the past for arthritis - Constitutional Constitutional: Denies chills, Denies fever - EENT Eyes: bilateral dry eye, denies blurred vision, denies pain Ears: bilateral: decreased hearing, deny: tinnitus Ears, nose, mouth and throat: Denies headache, Denies sore throat - Breasts Breasts: bilateral: as per HPI - Cardiovascular Comment: A-fib Cardiovascular: Reports as per HPI - Respiratory Respiratory: Denies cough - Gastrointestinal Gastrointestinal: Denies abdominal pain, Denies diarrhea, Denies nausea, Denies vomiting - Genitourinary (Female) Genitourinary: Denies dysuria, Denies hematuria - Menstruation Menstruation: Reports post hysterectomy - Musculoskeletal Comment: arthritis - Integumentary Integumentary: Denies pruritus, Denies rash - Neurological Neurological: Denies numbness, Denies weakness - Psychiatric Psychiatric: Denies anxiety, Denies depression - Endocrine Endocrine: Denies fatigue, Denies weight change - Hematologic/Lymphatic Comment: none - Allergic/Immunologic Allergic/Immunologic: Reports as per HPI Objective - Vital Signs Vital signs: Vital Signs Temp 98.6 F 08/26/23 13:07 Pulse 75 08/26/23 13:07 Resp 18 08/26/23 13:07 BP 186/99 08/26/23 13:07 Pulse Ox 95 08/26/23 13:07 FiO2 Intake & Output 08/25/23 08/26/23 08/26/23 18:59 06:59 18:59 Weight 112.037 kg - Constitutional General appearance: Present: cooperative - EENT Eyes: Present: EOMI - Neck Neck: Present: normal ROM - Respiratory Respiratory: bilateral: CTA - Cardiovascular Heart sounds: normal: S1, S2 - Integumentary Integumentary: Present: normal turgor - Musculoskeletal Musculoskeletal Comment(s): uses a cane/ sciatic nerve pain - Psychiatric Psychiatric: Present: A&O x's 3, appropriate affect, intact judgment & insight - Additional findings Additional findings: Breast Exam: BRA: 36B Inspection: Grade 3 ptosis left breast, right chest wall status post mastectomy Palpation: Right chest wall: No evidence of recurrent cancer Right axilla: No adenopathy of concern Left breast: Multi-positional exam fibrocystic changes no dominant masses or nodules of concern Left axilla: No adenopathy of concern Assessment and Plan Assessment: Impression: No evidence of recurrent right breast cancer Recent left breast mammogram and ultrasound 08-12-23 BIRADS 3 repeat left breast mammogram in 6 months plan: 6 months left breast mammogram and ultrasound with appointment Continue aromatase inhibitor Continue follow-up with medical oncology CC: DR. Ding
== END ==
LOC: WWCWWP 12:56
PROVIDERS: ATTEND Surgery
DX: C50.911 Malignant neoplasm of unspecified site of right female breast (principal); E03.9 Hypothyroidism, unspecified; E78.00 Pure hypercholesterolemia, unspecified; I48.91 Unspecified atrial fibrillation; Z17.0 Estrogen receptor positive status [ER+]; Z51.11 Encounter for antineoplastic chemotherapy; Z88.8 Allergy status to other drugs, medicaments and biological substances; Z90.11 Acquired absence of right breast and nipple; Z85.3 Personal history of malignant neoplasm of breast; Z90.49 Acquired absence of other specified parts of digestive tract; Z90.721 Acquired absence of ovaries, unilateral; Z96.653 Presence of artificial knee joint, bilateral; Z80.3 Family history of malignant neoplasm of breast; Z88.1 Allergy status to other antibiotic agents; Z91.048 Other nonmedicinal substance allergy status; Z87.891 Personal history of nicotine dependence

== ENCOUNTER 2023-12-09 11:37 | Emergency (ER) | payer MEDICARE ==
[2023-12-09 12:24] VITALS: PULSE 65; RESP 18; TEMP 98
--- NOTE | 2023-12-09 13:21 | ED ---
Recheck HPI - General Chief Complaint: Recheck/Abnormal Lab/Rx Stated Complaint: High blood pressure Time Seen by Provider: 12/09/23 12:27 Source: patient, RN notes reviewed, old records reviewed, Caregiver Mode of arrival: ambulatory Limitations: no limitations - History of Present Illness Initial Comments: This is a 83-year-old female to the ER. Patient was today for evaluation regards to chest pain to uncontrolled blood pressure patient has had elevated blood pressure at home and sent in by PCP for evaluation regards to high blood pressure. No complaints of chest pain shortness of breath or neurological complaints. Patient has been taking medications as prescribed MD Complaint: other (Recheck abnormal blood pressure) -: unknown Symptoms Since Prior Visit: no new symptoms Context: planned re-check Associated Symptoms: none Treatments Prior to Arrival: home treatments, other (0) - Related Data Home Medications Medication Instructions Recorded Confirmed Fenofibrate 160 mg PO DAILY 12/24/17 08/26/23 Folic Acid 1 mg PO DAILY 12/24/17 08/26/23 Levothyroxine Sodium [Synthroid] 112 mcg PO DAILY 12/24/17 08/26/23 atenoloL 100 mg PO DAILY 12/24/17 08/26/23 Melatonin 10 mg PO HS 02/06/22 08/26/23 Rosuvastatin [Crestor] 10 mg PO Q72H 02/06/22 08/26/23 Acetaminophen [Tylenol Arthritis] 650 mg PO DAILY PRN 05/01/22 08/26/23 Celecoxib [CeleBREX] 200 mg PO DAILY 05/01/22 08/26/23 Cholecalciferol [Vitamin D3 (25 25 mcg PO DAILY 05/01/22 08/26/23 Mcg = 1000 Iu)] Ferrous Sulfate [Feosol] 325 mg PO DAILY 05/01/22 08/26/23 Fish Oil/Dha/Epa [Fish Oil 1,200 1 each PO DAILY 05/01/22 08/26/23 mg Fish Oil] Fluticasone Nasal Tarpley [Flonase 1 spray EA NOSTRIL DAILY 05/01/22 08/26/23 Nasal Tarpley] Multivitamins, Thera [Multivitamin 1 tab PO DAILY 05/01/22 08/26/23 (formulary)] Omeprazole 20 mg PO DAILY PRN 05/01/22 08/26/23 Ubidecarenone [Coenzyme Q10] 100 mg PO DAILY 05/01/22 08/26/23 Valsartan/Hydrochlorothiazide 1 each PO DAILY 05/01/22 08/26/23 [Valsartan-Hctz 160-25 mg Tab] Anastrozole 1 mg PO DAILY 05/22/22 08/26/23 Calcium Citrate/Vitamin D3 1,000 mg PO DAILY 05/22/22 08/26/23 [Calcium Cit-Vit D3 500 mg Chew] Gabapentin 300 mg PO HS 08/26/23 08/26/23 Previous Rx's Medication Instructions Recorded amLODIPine [Norvasc] 2.5 mg PO DAILY #60 tablet 12/09/23 Allergies Allergy/AdvReac Type Severity Reaction Status Date / Time erythromycin base Allergy Rash/Hives Verified 12/09/23 11:49 [From E-Mycin] adhesive tape AdvReac Rash/Hives Verified 12/09/23 11:49 simvastatin [From Zocor] AdvReac MUSCLE Verified 12/09/23 11:49 CRAMPS Review of Systems ROS Statement: Those systems with pertinent positive or pertinent negative responses have been documented in the HPI. ROS Other: All systems not noted in ROS Statement are negative. Past Medical History Past Medical History: Blood Disorder, Hyperlipidemia, Hypertension, Thyroid Disorder Additional Past Medical History / Comment(s): ANEMIA. HX CD-JKA ANTIBIODIES IN BLOOD History of Any Multi-Drug Resistant Organisms: None Reported Past Surgical History: Breast Surgery, Hysterectomy, Joint Replacement Additional Past Surgical History / Comment(s): RT BREAST LUMPECTOMY-BENIGN. LUMPECTOMY UNDER RT ARM-BENIGN. LT FOOT SX. COLONOSCOPY. BILAT TKA Past Anesthesia/Blood Transfusion Reactions: No Reported Reaction Past Psychological History: Anxiety Smoking Status: Former smoker Past Alcohol Use History: None Reported Past Drug Use History: None Reported - Past Family History Mother Family Medical History: No Reported History General Exam Limitations: no limitations General appearance: alert, in no apparent distress Head exam: Present: atraumatic, normocephalic, normal inspection Eye exam: Present: normal appearance, PERRL, EOMI. Absent: scleral icterus, conjunctival injection, periorbital swelling ENT exam: Present: normal exam, mucous membranes moist Neck exam: Present: normal inspection. Absent: tenderness, meningismus, lymphadenopathy Respiratory exam: Present: normal lung sounds bilaterally. Absent: respiratory distress, wheezes, rales, rhonchi, stridor Cardiovascular Exam: Present: regular rate, normal rhythm, normal heart sounds. Absent: systolic murmur, diastolic murmur, rubs, gallop, clicks GI/Abdominal exam: Present: soft, normal bowel sounds. Absent: distended, tenderness, guarding, rebound, rigid Extremities exam: Present: normal inspection, full ROM, normal capillary refill. Absent: tenderness, pedal edema, joint swelling, calf tenderness Back exam: Present: normal inspection Neurological exam: Present: alert, oriented X3, CN II-XII intact Psychiatric exam: Present: normal affect, normal mood Skin exam: Present: warm, dry, intact, normal color. 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 sent in by a medical professional or institution (, PA, MOLDED GOODS EMBOSSING PRESS OPERATOR, urgent care, hospital, or penitentiary...) When possible be specific @ -no Did you speak to anyone other than the patient for history (EMS, parent, family, police, friend...)? What history was obtained from this source @ -no Did you review nursing and triage notes (agree or disagree)? Why? @ -agree Are old charts reviewed (outside hosp., previous admission, EMS record, old EKG, old radiological studies, urgent care reports/EKG's, penitentiary records)? Report findings @ -yes Differential Diagnosis (chest pain, altered mental status, abdominal pain women, abdominal pain men, vaginal bleeding, weakness, fever, dyspnea, syncope, headache, dizziness, GI bleed, back pain, seizure, CVA, palpatations, mental health, musculoskeletal)? @ -prior EKG interpreted by me (3pts min.). @ -yes X-rays interpreted by me (1pt min.). @ -no CT interpreted by me (1pt min.). @ -no U/S interpreted by me (1pt. min.). @ -no What testing was considered but not performed or refused? (CT, X-rays, U/S, labs)? Why? @ -none What meds were considered but not given or refused? Why? @ -none Did you discuss the management of the patient with other professionals (professionals i.e. , PA, MOLDED GOODS EMBOSSING PRESS OPERATOR, lab, RT, psych nurse, social work professor, oil transport driver, teacher, compliance review officer, case packer and sealer)? Give summary @ -no Was smoking cessation discussed for >3mins.? @ -no Was critical care preformed (if so, how long)? @ -no Were there social determinants of health that impacted care today? How? (Homelessness, low income, unemployed, alcoholism, drug addiction, transportation, low edu. Level, literacy, decrease access to med. care, mcc, rehab)? @ -none Was there de-escalation of care discussed even if they declined (Discuss DNR or withdrawal of care, Hospice)? DNR status @ -no What co-morbidities impacted this encounter? (DM, HTN, Smoking, COPD, CAD, Cancer, CVA, ARF, Chemo, Hep., AIDS, mental health diagnosis, sleep apnea, morbid obesity)? @ -none Was patient admitted / discharged? Hospital course, mention meds given and route, prescriptions, significant lab abnormalities, going to OR and other pertinent info. @ - 83 female evaluation of elevated blood pressure. Patient is in no significant distress no chest pain or neurological findings. Patient's blood pressure is improved controlled and patient can be discharged home Discharge Undiagnosed new problem with uncertain prognosis? @ -no Drug Therapy requiring intensive monitoring for toxicity (Heparin, Nitro, Insulin, Cardizem)? @ -no Were any procedures done? @ -no Diagnosis/symptom? @ -Hypertension Acute, or Chronic, or Acute on Chronic? @ -Acute Uncomplicated (without systemic symptoms) or Complicated (systemic symptoms)? @ -Complicated Side effects of treatment? @ -no Exacerbation, Progression, or Severe Exacerbation? @ -exacerbation Poses a threat to life or bodily function? How? (Chest pain, [place], [place], pneumonia, PE, COPD, DKA, ARF, appy, cholecystitis, CVA, Diverticulitis, Homicidal, Suicidal, threat to staff... and all critical care pts) @ -yes with severe hypertension extreme of age Medical Decision Making - Medical Decision Making 83 female evaluation of elevated blood pressure. Patient is in no significant distress no chest pain or neurological findings. Patient's blood pressure is improved controlled and patient can be discharged home - EKG Data -: EKG Interpreted by Me (EKG is sinus 71 AK 174 QRS 114 QTc 411) Disposition Clinical Impression: Hypertension Disposition: HOME SELF-CARE Condition: Good Instructions (If sedation given, give patient instructions): Hypertension (ED) Prescriptions: amLODIPine [Norvasc] 2.5 mg PO DAILY #60 tablet Is patient prescribed a controlled substance at d/c from ED?: No Referrals: Anu Ding DO [Primary Care Provider] - 1-2 days Time of Disposition: 13:00
[2023-12-09] MEDS: cloNIDine HCL 0.2 MG TAB PO STA (13:33)
[2023-12-09] MEDS: SODIUM CHLORIDE 0.9% 500 ML 500 ML IV STA (13:36)
[2023-12-09 14:14] VITALS: BP 160/88
== END 2023-12-09 13:40 | disposition home or self-care (01) ==
LOC: EC 11:37
DX: I10 Essential (primary) hypertension (principal); I45.10 Unspecified right bundle-branch block; Z87.891 Personal history of nicotine dependence; Z88.1 Allergy status to other antibiotic agents; Z88.8 Allergy status to other drugs, medicaments and biological substances
CPT/HCPCS: 93005; 99284

== ENCOUNTER → 2024-03-23 | Outpatient (CLI) | payer MEDICARE ==
--- NOTE | 2024-03-23 08:17 | MM ---
Reason for Exam: Follow-up at short interval from prior study. Last screening mammogram was performed 8 month(s) ago. Patient History: Menarche at age 14. First Full-Term at age 28. Left ovary removed at age 47. Right ovary removed at age 47. Hysterectomy at age 47. Postmenopausal. Breast cancer, right, age 82. Estrogen for 15 years, 6 months, until age 65. Progesterone for 5 years from age 62 until age 67. Hormonal Contraceptives for 3 years until age 26. Unspecified Hormone, from age 78 until age 81. 05/01/2022, Mastectomy on the Right side. 02/19/2022, Malignant US biopsy breast VAD RT on the right side. 1969, Excisional Biopsy on the Right side. 1969, Excisional Biopsy on the Right side. Prior Study Comparison: 02/19/2022 Right MG diagnostic mammo RT wo CAD, [facility]. 02/04/2023 Left MG 3D diag mammo w/cad LT, [facility]. 08/12/2023 Left MG 3D diag mammo w/cad LT, [facility]. Tissue Density: Left: The breasts are heterogeneously dense, which may obscure small masses. Findings: Analyzed By CAD. Pattern is stable. Multiple benign-appearing round calcifications are present. No significant interval change is evident. No suspicious groups of microcalcifications, spiculated or lobular masses, architectural distortion or other secondary signs of malignancy are mammographically apparent. Overall Assessment: Incomplete: need additional imaging evaluation, BI-RAD 0 Management: Diagnostic Breast Ultrasound of the left breast. A negative mammogram report should not preclude additional follow up of suspicious palpable abnormalities. Patient should continue monthly self breast exam. A clinical breast exam by your physician is recommended on an annual basis and results should be correlated with mammographic findings. Note on Rosanne scores and lifetime risk: 1. A Rosanne score greater than 3% is considered moderate risk. If this is the case, consider specialist referral to assess eligibility for a risk reducing agent. 2. If overall lifetime risk for the development of breast cancer is 20% or higher, the patient may qualify for future screening with alternating mammogram and breast MRI. Electronically signed and approved by: Osiel Webb D.O. Radiologis
--- NOTE | 2024-03-23 10:01 | USB ---
Reason for Exam: Follow-up at short interval from prior study. Patient History: Menarche at age 14. First Full-Term at age 28. Left ovary removed at age 47. Right ovary removed at age 47. Hysterectomy at age 47. Postmenopausal. Breast cancer, right, age 82. Estrogen for 15 years, 6 months, until age 65. Progesterone for 5 years from age 62 until age 67. Hormonal Contraceptives for 3 years until age 26. Unspecified Hormone, from age 78 until age 81. 05/01/2022, Mastectomy on the Right side. 02/19/2022, Malignant US biopsy breast VAD RT on the right side. 1969, Excisional Biopsy on the Right side. 1969, Excisional Biopsy on the Right side. Technique: Method: Targeted. Prior Study Comparison: 02/19/2022 Right MG diagnostic mammo RT wo CAD, [facility]. 02/04/2023 Left MG 3D diag mammo w/cad LT, [facility]. 08/12/2023 Left MG 3D diag mammo w/cad LT, [facility]. Findings: The periareolar of the left breast, the axilla of the left breast and the retroareolar of the left breast were scanned. There is a heterogenous hypoechoic area 0.9 x 0.5 x 0.5 cm 12:00 position 1 cm from the nipple. This is present previously. At the 1:00 position 1 cm from the nipple is a 0.3 x 0.3 x 0.3 cm tiny cyst. There is a heterogenous hypoechoic area measuring 0.9 x 0.4 x 0.8 cm located 6:00 position 1 cm from the nipple.. This is unchanged in appearance from prior study. Left axillary lymph node is noted. Overall Assessment: Benign, BI-RAD 2 Management: Screening Mammogram of the left breast in 6 months. A clinical breast exam by your physician is recommended on an annual basis and results should be correlated with mammographic findings. This exam should not preclude additional follow-up of suspicious palpable abnormalities. Results were given to the patient verbally at the time of exam. Electronically signed and approved by: Osiel Webb D.O. Radiologis
--- NOTE | 2024-03-25 13:09 | USB ---
Reason for Exam: Clinical finding. Patient History: Menarche at age 14. First Full-Term at age 28. Left ovary removed at age 47. Right ovary removed at age 47. Hysterectomy at age 47. Postmenopausal. Breast cancer, right, age 82. Estrogen for 15 years, 6 months, until age 65. Progesterone for 5 years from age 62 until age 67. Hormonal Contraceptives for 3 years until age 26. Unspecified Hormone, from age 78 until age 81. 05/01/2022, Mastectomy on the Right side. 02/19/2022, Malignant US biopsy breast VAD RT on the right side. 1969, Excisional Biopsy on the Right side. 1969, Excisional Biopsy on the Right side. Technique: Method: Targeted. Prior Study Comparison: 02/19/2022 Right MG diagnostic mammo RT wo CAD, [facility]. 02/04/2023 Left MG 3D diag mammo w/cad LT, [facility]. 08/12/2023 Left MG 3D diag mammo w/cad LT, [facility]. Findings: The area of palpable concern of the left breast and the axilla of the left breast were scanned. No solid or cystic masses are identified.. Overall Assessment: Negative, BI-RAD 1 Electronically signed and approved by: Osiel Webb D.O. Radiologis
== END | disposition home or self-care (01) ==
LOC: RADMAMWWP 07:36
PROVIDERS: ATTEND Surgery
DX: R92.332 Mammographic heterogeneous density, left breast (principal); N63.20 Unspecified lump in the left breast, unspecified quadrant; Z85.3 Personal history of malignant neoplasm of breast; Z78.0 Asymptomatic menopausal state
CPT/HCPCS: 77065; 76642; G0279; 77061

== ENCOUNTER → 2024-03-23 | Outpatient (CLI) | payer MEDICARE ==
[2024-03-23 09:54] VITALS: BP 152/68; PULSE 70; RESP 18; TEMP 97.8
--- NOTE | 2024-03-23 10:12 | P.PN ---
Subjective Progress Note Date: 03/23/24 Principal diagnosis: [id number]-, also high grade DCIS (2021) 03-23-24 right breast invasive ductal cancer; [id number]+IL+Her2-, also high grade DCIS (2021) Sandra is an 84 year old white female seen initially in consultation for DR. Ding regarding a mammographic abnormality in the right breast. The patient was able to feel a lump in her right breast about three weeks prior. She had a bilateral mammogram on which led to an ultrasound of the right breast. No specific lesions of concern were identified in the left breast. The ultrasound revealed a mass in the right breast for which ultrasound-guided core biopsy was recommended. This was a spiculated mass in the 11 OClock position, 2.6 CM in size. About 50 years ago she had a right breast biopsy which was benign and a benign lipoma removed from the right axilla. She has no nipple discharge or skin changes. Core biopsy was done on 02-20-22; pathology revealed a G2 invasive ductal cancer ER+Pr+Her2-; The patient tolerated the procedure without difficulty. Oncotype: 19 chemotherapy benefit <1% She underwent a right mastectomy on . The tumor was 2.5 cm. One node of 9 had micrometastatic disease/1.5 mm with extranodal extension. She did not have radiation therapy; was seen by Dr. Barth She is tolerating anestrazole from Dr. Reddy Her last mammogram was 08-12-23 she also had an ultrasound the same date; multiople cyst noted, BIRAD 3 repeat mammogram in 6 months ; a right bresat mammogram and ultrasoudn done on 03-23-24 ANIKAAD 2 personally reviewed and discussed with Dr. Blanca She is not complaining of any new masses or nodules of concern in her left breast. Or any lesions on her chest wall. Examination she was noted to have about a 2 cm area of increased nodularity in the left axilla. When this was brought to her attention she states she can feel the spot. Caffeine: 1 cup/day nicotine: none chocolate: occasional Family History: mother: skin cancer paternal cousin breast cancer in her late 50's Hormonal History: menarche: 14 , breast fed: no, age at first : 28 menopause: hysterectomy at 43, no cancer, took both ovaries BCP: 7 years in her 20's and 30's hormones: was on estrogen after her hysterectomy for 20 years no estrogen at this time Surgical History: Total abdominal hysterectomy bilateral salpingo-oophorectomy/endometriosis right breast biopsy lipoma foot surgery tubaligation appendectomy bilateral knee replacement right mastectomy and SNB Allergies: Zoloft adhesize tape erythmycin Medical History: vaginal dryness A-fib anemia high cholesterol hypothyroid back epidural steriods for pain after an injury Social History: nicotine: none alcohol: none drug: CBD in the past for arthritis - Constitutional Constitutional: Denies chills, Denies fever - EENT Eyes: bilateral dry eye, denies blurred vision, denies pain Ears: bilateral: decreased hearing, deny: tinnitus Ears, nose, mouth and throat: Denies headache, Denies sore throat - Breasts Breasts: bilateral: as per HPI - Cardiovascular Comment: A-fib Cardiovascular: Reports as per HPI - Respiratory Respiratory: Denies cough - Gastrointestinal Gastrointestinal: Denies abdominal pain, Denies diarrhea, Denies nausea, Denies vomiting - Genitourinary (Female) Genitourinary: Denies dysuria, Denies hematuria - Menstruation Menstruation: Reports post hysterectomy - Musculoskeletal Comment: arthritis - Integumentary Integumentary: Denies pruritus, Denies rash - Neurological Neurological: Denies numbness, Denies weakness - Psychiatric Psychiatric: Denies anxiety, Denies depression - Endocrine Endocrine: Denies fatigue, Denies weight change - Hematologic/Lymphatic Comment: none - Allergic/Immunologic Allergic/Immunologic: Reports as per HPI Objective - Vital Signs Vital signs: Vital Signs Temp 97.8 F 03/23/24 09:53 Pulse 70 03/23/24 09:53 Resp 18 03/23/24 09:53 BP 152/68 03/23/24 09:53 Pulse Ox 95 03/23/24 09:53 FiO2 Intake & Output 03/22/24 03/23/24 03/23/24 18:59 06:59 18:59 Weight 108.862 kg - Constitutional General appearance: Present: cooperative - EENT Eyes: Present: EOMI ENT: Present: hearing grossly normal - Neck Neck: Present: normal ROM - Respiratory Respiratory: bilateral: CTA - Cardiovascular Heart sounds: normal: S1, S2 - Integumentary Integumentary: Present: normal turgor - Musculoskeletal Musculoskeletal Comment(s): uses a cane - Psychiatric Psychiatric: Present: A&O x's 3, appropriate affect, intact judgment & insight - Additional findings Additional findings: Breast Exam: BRA: 36B Inspection: Grade 3 ptosis left breast, right chest wall status post mastectomy Palpation: Right chest wall: No evidence of recurrent cancer Right axilla: No adenopathy of concern Left breast: Multi-positional exam fibrocystic changes; approximately 2 cm area of increased nodularity in the upper outer quadrant axillary region Left axilla: No adenopathy of concern Assessment and Plan Assessment: Impression: No evidence of recurrent right breast cancer New left upper outer quadrant/axillary nodularity 03/1124 left breast mammogram and ultrasound were BI-RADS 2 plan: Ultrasound of area of palpable abnormality left axillary region Patient will follow-up after this is completed Would recommend a core biopsy even if the ultrasound does not show anything of concern; although this may represent a lipoma it is necessary that it be further evaluated CC: DR. Ding
== END ==
LOC: WWCWWP 07:34
PROVIDERS: ATTEND Surgery
DX: R92.8 Other abnormal and inconclusive findings on diagnostic imaging of breast (principal); C50.911 Malignant neoplasm of unspecified site of right female breast; N63.32 Unspecified lump in axillary tail of the left breast; Z80.3 Family history of malignant neoplasm of breast; Z17.0 Estrogen receptor positive status [ER+]; Z88.1 Allergy status to other antibiotic agents; Z91.048 Other nonmedicinal substance allergy status; Z88.8 Allergy status to other drugs, medicaments and biological substances; Z87.891 Personal history of nicotine dependence

== ENCOUNTER → 2024-07-06 | Outpatient (CLI) | payer MEDICARE ==
--- NOTE | 2024-07-06 08:50 | BD ---
EXAMINATION TYPE: Axial Bone Density DATE OF EXAM: 07/06/2024 CLINICAL HISTORY: 84 years old Female. 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 Bone mineral density as measured about the Lumbar spine is: ----- L1-L4(G/cm2): 1.360 T Score Values are as follows: ----- L1: 1.6 ----- L2: 1.7 ----- L3: 2.7 ----- L4: 0.4 ----- L1-L4: 1.5 Z Score Values are as follows: ----- L1: 2.3 ----- L2: 2.4 ----- L3: 3.4 ----- L4: 1.1 ----- L1-L4: 2.2 Bone mineral density has: Decreased -4.8% since study of: 05/22/2022 Bone mineral density about the R hip (g/cm2): 1.016 Bone mineral density about the L hip (g/cm2): 1.071 T Score values are as follows: -----R Neck: 0.0 -----L Neck: -0.1 -----R Total: 0.1 -----L Total: 0.5 Z Score values are as follows: -----R Neck: 1.5 -----L Neck: 1.5 -----R Total: 1.4 -----L Total: 1.9 Bone mineral density has: Decreased -4.5% since study of: 05/22/2022 FRAX%s: The graph provided illustrates a 11.2% chance for a major osteoporotic fx and a 1.4% chance f or the hips probability for fx in 10 years time. IMPRESSION: Normal (Values between +1 and -1 indicate normal bone mass). Consider repeating this study in 5 year s or sooner if there is some new clinical indication. NOTE: T-SCORE=SD OF THE YOUNG ADULT MEAN. [facility], , 07/06/2024 8:48 AM
== END | disposition home or self-care (01) ==
LOC: RADBDWWP 07:28
PROVIDERS: ATTEND Internal Medicine Hematology & Oncology
DX: M81.0 Age-related osteoporosis without current pathological fracture
CPT/HCPCS: 77080

== ENCOUNTER → 2024-08-04 | Outpatient (CLI) | payer MEDICARE ==
[2024-08-04 08:17] VITALS: BP 158/85; PULSE 70; RESP 17; TEMP 98
--- NOTE | 2024-08-04 08:31 | P.PCN ---
Date of Procedure: 08/04/24 Preoperative Diagnosis: palpable fullness QOU left breast Postoperative Diagnosis: same Procedure(s) Performed: core biopsy of the palpable area left breast UOQ Anesthesia: local Surgeon: Jaclyn Temple Estimated Blood Loss (ml): 1 Pathology: other (tissue left breast) Condition: stable Disposition: same day Indications for Procedure: palpable mass left UOQ breast probable lipoma Operative Findings: fatty tissue Description of Procedure: following informed consent the area of concern in the left breast was prepped. 1% lidocane was used to anesthatize the area. An 11 blade was used to make a manpreet in the skin. A 14 gague needle on a AudioBoo biopsy device was used to obtain 2 cores of tissue. It appeared to be lipomatous tissue. The patient tolerated the procedure in stabel fashionl The specimen was was sent to pathology. Plan follow up in 2 weeks
== END ==
LOC: WWCWWP 07:45
PROVIDERS: ATTEND Surgery
DX: N63.21 Unspecified lump in the left breast, upper outer quadrant (principal); Z88.1 Allergy status to other antibiotic agents; Z88.8 Allergy status to other drugs, medicaments and biological substances; Z91.048 Other nonmedicinal substance allergy status; Z87.891 Personal history of nicotine dependence

== ENCOUNTER → 2024-08-25 | Outpatient (CLI) | payer MEDICARE ==
--- NOTE | 2024-08-25 14:12 | P.PN ---
Subjective Progress Note Date: 08/25/24 Subjective Progress Note Date: 03/23/24 Principal diagnosis: [id number]+MO+Her2-, also high grade DCIS (2021) 08-25-24 right breast invasive ductal cancer; [id number]+MO+Her2-, also high grade DCIS (2021) Sandra was seen on 03-23-24, she is an 84 year old white female seen initially in consultation for DR. Ding regarding a mammographic abnormality in the right breast. The patient was able to feel a lump in her right breast about three weeks prior. She had a bilateral mammogram on which led to an ultrasound of the right breast. No specific lesions of concern were identified in the left breast. The ultrasound revealed a mass in the right breast for which ultrasound-guided core biopsy was recommended. This was a spiculated mass in the 11 OClock position, 2.6 CM in size. About 50 years ago she had a right breast biopsy which was benign and a benign lipoma removed from the right axilla. She has no nipple discharge or skin changes. Core biopsy was done on 02-20-22; pathology revealed a G2 invasive ductal cancer ER+Pr+Her2-; The patient tolerated the procedure without difficulty. Oncotype: 19 chemotherapy benefit <1% She underwent a right mastectomy on . The tumor was 2.5 cm. One node of 9 had micrometastatic disease/1.5 mm with extranodal extension. She did not have radiation therapy; was seen by Dr. Barth She is tolerating anestrazole from Dr. Reddy She had a mammogram on 08-12-23 she also had an ultrasound the same date; multiople cyst noted, BIRAD 3 repeat mammogram in 6 months ; a right breast mammogram and ultrasound done on 03-23-24 BIRAD 2 personally reviewed and discussed with Dr. Blanca She is not complaining of any new masses or nodules of concern in her left breast. Or any lesions on her chest wall. Examination she was noted to have about a 2 cm area of increased nodularity in the left axilla. When this was brought to her attention she states she can feel the spot. repeat ultrasound of the area of palpable change in the left upper outer quadrant/axilla was performed on 03-23-2024. No specific lesion of concern was identified. This may represent a lipomatous lesion. Secondary to the palpable nature I recommended a core biopsy of the palpable lesion and this will be scheduled in the near futuure The patient on 08-04-24 underwent core biopsy of palpable lesion in the left breast UOQ, pathology: benign adipose tissue Caffeine: 1 cup/day nicotine: none chocolate: occasional Family History: mother: skin cancer paternal cousin breast cancer in her late 50's Hormonal History: menarche: 14 , breast fed: no, age at first : 28 menopause: hysterectomy at 43, no cancer, took both ovaries BCP: 7 years in her 20's and 30's hormones: was on estrogen after her hysterectomy for 20 years no estrogen at this time Surgical History: Total abdominal hysterectomy bilateral salpingo-oophorectomy/endometriosis right breast biopsy lipoma foot surgery tubaligation appendectomy bilateral knee replacement right mastectomy and SNB Allergies: Zoloft adhesize tape erythmycin Medical History: vaginal dryness A-fib anemia high cholesterol hypothyroid back epidural steriods for pain after an injury Social History: nicotine: none alcohol: none drug: CBD in the past for arthritis - Constitutional Constitutional: Denies chills, Denies fever - EENT Eyes: bilateral dry eye, denies blurred vision, denies pain Ears: bilateral: decreased hearing, deny: tinnitus Ears, nose, mouth and throat: Denies headache, Denies sore throat - Breasts Breasts: bilateral: as per HPI - Cardiovascular Comment: A-fib Cardiovascular: Reports as per HPI - Respiratory Respiratory: Denies cough - Gastrointestinal Gastrointestinal: Denies abdominal pain, Denies diarrhea, Denies nausea, Denies vomiting - Genitourinary (Female) Genitourinary: Denies dysuria, Denies hematuria - Menstruation Menstruation: Reports post hysterectomy - Musculoskeletal Comment: arthritis - Integumentary Integumentary: Denies pruritus, Denies rash - Neurological Neurological: Denies numbness, Denies weakness - Psychiatric Psychiatric: Denies anxiety, Denies depression - Endocrine Endocrine: Denies fatigue, Denies weight change - Hematologic/Lymphatic Comment: none - Allergic/Immunologic Allergic/Immunologic: Reports as per HPI Objective - Constitutional General appearance: Present: cooperative - EENT Eyes: Present: EOMI ENT: Present: hearing grossly normal - Neck Neck: Present: normal ROM - Respiratory Respiratory: bilateral: CTA - Cardiovascular Heart sounds: normal: S1, S2 - Integumentary Integumentary: Present: normal turgor - Musculoskeletal Musculoskeletal: Present: gait normal - Psychiatric Psychiatric: Present: A&O x's 3, appropriate affect, intact judgment & insight - Additional findings Additional findings: Breast Exam: BRA: 36B Inspection: Grade 3 ptosis left breast, right chest wall status post mastectomy Palpation: Right chest wall: No evidence of recurrent cancer Right axilla: No adenopathy of concern Left breast: exam in chair fibrocystic changes; approximately 2 cm area of increased soft nodularity in the upper outer quadrant axillary region probable lipoma Left axilla: No adenopathy of concern Assessment and Plan Assessment: Impression: No evidence of recurrent right breast cancer New left upper outer quadrant fullness probable lipoma 03/1124 left breast mammogram and ultrasound were BI-RADS 2 plan: Ultrasound of area of palpable abnormality left axillary region/ benign adipose tissue left breast mammogram in March [address] Reddy CC: DR. Ding
[2024-08-25 14:16] VITALS: BP 155/87; PULSE 64; RESP 17; TEMP 98
== END ==
LOC: WWCWWP 13:43
PROVIDERS: ATTEND Surgery
DX: R92.8 Other abnormal and inconclusive findings on diagnostic imaging of breast (principal); N63.32 Unspecified lump in axillary tail of the left breast; Z85.3 Personal history of malignant neoplasm of breast; Z88.1 Allergy status to other antibiotic agents; Z91.048 Other nonmedicinal substance allergy status; Z88.8 Allergy status to other drugs, medicaments and biological substances; Z87.891 Personal history of nicotine dependence

== ENCOUNTER → 2025-03-29 | Outpatient (CLI) | payer MEDICARE ==
[2025-03-29 12:28] VITALS: BP 165/84; PULSE 69; RESP 16; TEMP 97.9
--- NOTE | 2025-03-29 12:39 | P.PN ---
Subjective Progress Note Date: 03/29/25 Principal diagnosis: right breast invasive ductal cancer; [id number]+RI+Her2-, also high grade DCIS (2021) Subjective Progress Note Date: 03-29-25 Subjective Progress Note Date: Principal diagnosis: [id number]+RI+Her2-, also high grade DCIS (2021) 08-29-25 right breast invasive ductal cancer; [id number]+RI+Her2-, also high grade DCIS (2021) Sandra was seen on 03-23-24, she is an 85 year old white female seen initially in consultation for DR. Ding regarding a mammographic abnormality in the right breast. The patient was able to feel a lump in her right breast about three weeks prior. She had a bilateral mammogram on which led to an ultrasound of the right breast. No specific lesions of concern were identified in the left breast. The ultrasound revealed a mass in the right breast for which ultrasound-guided core biopsy was recommended. This was a spiculated mass in the 11 OClock position, 2.6 CM in size. About 50 years ago she had a right breast biopsy which was benign and a benign lipoma removed from the right axilla. She has no nipple discharge or skin changes. Core biopsy was done on 02-20-22; pathology revealed a G2 invasive ductal cancer ER+Pr+Her2-; The patient tolerated the procedure without difficulty. Oncotype: 19 chemotherapy benefit <1% She underwent a right mastectomy on . The tumor was 2.5 cm. One node of 9 had micrometastatic disease/1.5 mm with extranodal extension. She did not have radiation therapy; was seen by Dr. Barth She is tolerating anestrazole from Dr. Reddy She is not complaining of any new masses or nodules of concern in her left breast. Or any lesions on her chest wall. Examination she was noted to have about a 2 cm area of increased nodularity in the left axilla. When this was brought to her attention she states she can feel the spot. repeat ultrasound of the area of palpable change in the left upper outer quadrant/axilla was performed on 03-23-2024. No specific lesion of concern was identified. This may represent a lipomatous lesion. Secondary to the palpable nature I recommended a core biopsy of the palpable lesion and this will be scheduled in the near [facility] The patient on 08-04-24 underwent core biopsy of palpable lesion in the left breast UOQ, pathology: benign adipose tissue most recent left breast mammogram on 03-29-25 BIRAD 2 personally interpreted Caffeine: 1 cup/day nicotine: none chocolate: occasional Family History: mother: skin cancer paternal cousin breast cancer in her late 50's Hormonal History: menarche: 14 , breast fed: no, age at first : 28 menopause: hysterectomy at 43, no cancer, took both ovaries BCP: 7 years in her 20's and 30's hormones: was on estrogen after her hysterectomy for 20 years no estrogen at this time Surgical History: Total abdominal hysterectomy bilateral salpingo-oophorectomy/endometriosis right breast biopsy lipoma foot surgery tubaligation appendectomy bilateral knee replacement right mastectomy and SNB Allergies: Zoloft adhesize tape erythmycin Medical History: vaginal dryness A-fib anemia high cholesterol hypothyroid back epidural steriods for pain after an injury Social History: nicotine: none alcohol: none drug: CBD in the past for arthritis - Constitutional Constitutional: Denies chills, Denies fever - EENT Eyes: bilateral dry eye, denies blurred vision, denies pain Ears: bilateral: decreased hearing, deny: tinnitus Ears, nose, mouth and throat: Denies headache, Denies sore throat - Breasts Breasts: bilateral: as per HPI - Cardiovascular Comment: A-fib Cardiovascular: Reports as per HPI - Respiratory Respiratory: Denies cough - Gastrointestinal Gastrointestinal: Denies abdominal pain, Denies diarrhea, Denies nausea, Denies vomiting - Genitourinary (Female) Genitourinary: Denies dysuria, Denies hematuria - Menstruation Menstruation: Reports post hysterectomy - Musculoskeletal Comment: arthritis - Integumentary Integumentary: Denies pruritus, Denies rash - Neurological Neurological: Denies numbness, Denies weakness - Psychiatric Psychiatric: Denies anxiety, Denies depression - Endocrine Endocrine: Denies fatigue, Denies weight change - Hematologic/Lymphatic Comment: none - Allergic/Immunologic Allergic/Immunologic: Reports as per HPI Objective - Vital Signs Vital signs: Intake & Output 03/28/25 03/29/25 03/29/25 18:59 06:59 18:59 Weight 113.398 kg - Constitutional General appearance: Present: cooperative - EENT Eyes: Present: EOMI ENT: Present: hearing grossly normal - Neck Neck: Present: normal ROM - Respiratory Respiratory: bilateral: CTA - Cardiovascular Rhythm: regular Heart sounds: normal: S1, S2 - Integumentary Integumentary: Present: normal turgor - Musculoskeletal Musculoskeletal: Present: gait normal - Psychiatric Psychiatric: Present: A&O x's 3, appropriate affect, intact judgment & insight - Additional findings Additional findings: Breast Exam: BRA: 36B Inspection: Grade 3 ptosis left breast, right chest wall status post mastectomy Palpation: Right chest wall: No evidence of recurrent cancer Right axilla: No adenopathy of concern Left breast: exam in chair fibrocystic changes; approximately 2 cm area of increased soft nodularity in the upper outer quadrant axillary region biopsy proven lipoma Left axilla: No adenopathy of concern Assessment and Plan Assessment: Impression: No evidence of recurrent right breast cancer New left upper outer quadrant fullness lipoma 03/29/25 left breast mammogram and ultrasound were BI-RADS 2 plan: continue anastrazole left breast mammogram in March 2026 and appointment follow up in 6 months for appointment follow with Dr. Reddy CC: DR. Ding
== END | disposition home or self-care (01) ==
LOC: WWCWWP 10:44
PROVIDERS: ATTEND Surgery
DX: Z85.3 Personal history of malignant neoplasm of breast (principal); Z88.1 Allergy status to other antibiotic agents; Z91.048 Other nonmedicinal substance allergy status; Z87.891 Personal history of nicotine dependence; Z88.8 Allergy status to other drugs, medicaments and biological substances

== ENCOUNTER → 2025-03-29 | Outpatient (CLI) | payer MEDICARE ==
--- NOTE | 2025-03-29 11:50 | MM ---
Reason for Exam: Hx of breast cancer, mastectomy. Last screening mammogram was performed 12 month(s) ago. Patient History: Menarche at age 14. First Full-Term at age 28. Left ovary removed at age 47. Right ovary removed at age 47. Hysterectomy at age 47. Postmenopausal. Breast cancer, right, age 82. Estrogen for 15 years, 6 months, until age 65. Progesterone for 5 years from age 62 until age 67. Hormonal Contraceptives for 3 years until age 26. 05/01/2022, Mastectomy on the Right side. 02/19/2022, Malignant US biopsy breast VAD RT on the right side. 1969, Excisional Biopsy on the Right side. 1969, Excisional Biopsy on the Right side. Prior Study Comparison: 07/09/2017 Bilateral Screening Mammogram, [facility]. 07/19/2018 Bilateral Screening Mammogram, [facility]. 01/30/2022 Bilateral MG 3D diag mammo w/cad YONAS, [facility]. 02/19/2022 Right MG diagnostic mammo RT wo CAD, [facility]. 02/04/2023 Left MG 3D diag mammo w/cad LT, [facility] 08/12/2023 Left MG 3D diag mammo w/cad LT, [facility] 03/23/2024 Left MG 3D diag mammo w/cad LT, [facility]. Tissue Density: Left: The breasts are heterogeneously dense, which may obscure small masses. Findings: Analyzed By CAD. Benign calcifications. No architectural distortion. There is a fold seen along the lower margin of the left breast confirmed by technologist. Overall Assessment: Benign, BI-RAD 2 Management: Screening Mammogram of the left breast. . Results were given to the patient verbally at the time of exam. Patient should continue monthly self-breast exams. A clinical breast exam by your physician is recommended on an annual basis. This exam should not preclude additional follow-up of suspicious palpable abnormalities. Note on Rosanne scores and lifetime risk: 1. A Rosanne score greater than 3% is considered moderate risk. If this is the case, consider specialist referral to assess eligibility for a risk reducing agent. 2. If overall lifetime risk for the development of breast cancer is 20% or higher, the patient may qualify for future screening with alternating mammogram and breast MRI. [facility], , 03/29/2025 11:45 AM. Electronically signed and approved by: Von Hawkins M.D. Radiologis
== END | disposition home or self-care (01) ==
LOC: RADMAMWWP 10:43
PROVIDERS: ATTEND Surgery
DX: C50.911 Malignant neoplasm of unspecified site of right female breast (principal); R92.332 Mammographic heterogeneous density, left breast; Z85.3 Personal history of malignant neoplasm of breast; Z78.0 Asymptomatic menopausal state; Z92.0 Personal history of contraception
CPT/HCPCS: 77061; 77065